=== PATIENT | female | born 1955 | race Caucasian/White ===

== ENCOUNTER → 2020-08-29 11:04 | Outpatient (BNVA) | payer OTHER, SELFPAY | PROVIDERS: Visit Provider Nurse Practitioner | DX: Z76.89 Persons encountering health services in other specified circumstances (principal) ==

== ENCOUNTER 2020-11-14 09:18 | Outpatient (REF) | payer MEDICARE, MEDICAID, SELFPAY ==
[2020-11-14 10:04] LABS: MANUAL DIFF FLAG NO
[2020-11-14 10:13] LABS: Basophils Absolute Auto 0.1 X10*3/uL (0.0-0.2); Basophils Percent Auto 0.8 % (0-2); Eosinophils Absolute Auto 0.2 X10*3/uL (0.0-0.4); Eosinophils Percent Auto 2.3 % (0-4); Hematocrit 44.2 % (37-47); Hemoglobin 14.4 g/dl (12.0-16.0); Imm Gran Abs Auto 0.02 X10*3/uL (0.00-0.03); Imm Gran Pct Auto 0.3 % (0.0-0.4); Lymphocytes Absolute Auto 2.5 X10*3/uL (1.2-4.9); Lymphocytes Percent Auto 32.8 % (20-40); Mean Corpuscular HGB Conc 32.6 g/dl (31.0-35.0); Mean Corpuscular Volume 85.8 fL (80-98); Mean Platelet Volume 10.5 fL (9.4-12.3); Monocytes Absolute Auto 0.5 X10*3/uL (0.1-1.2); Monocytes Percent Auto 6.5 % (2-11); Neutrophils Absolute Auto 4.4 X10*3/uL (2.0-8.3); Neutrophils Percent Auto 57.3 % (45-73); Platelet Count 280 X10*3/uL (160-400); Red Blood Count 5.15 X10*6/uL (4.20-5.50); Red Cell Distribution Width 12.7 % (11.0-16.0); White Blood Count 7.7 X10*3/uL (4.8-10.8)
[2020-11-14 10:43] LABS: Alanine Aminotransferase 23 U/L (0-31); Albumin Level 4.5 g/dL (3.5-5.0); Alkaline Phosphatase 61 U/L (39-117); Anion Gap 12 (12-20); Aspartate Amino Transferase 16 U/L (5-31); Bilirubin Total 0.5 mg/dL (0.0-1.0); Blood Urea Nitrogen 12 mg/dL (9-16); Calcium 9.8 mg/dL (8.4-10.2); Carbon Dioxide 32 mmol/L (22-29); Chloride 103 mmol/L (96-108); Cholesterol 245 mg/dL; Estimated Glomerular Filt Rate > 60; Glucose Random 91 mg/dL (60-115); HDL Cholesterol 38 mg/dL; LDL Cholesterol Calculated 137 mg/dl; Potassium 4.4 mmol/L (3.3-5.1); Sodium 143 mmol/L (135-145); Total Protein 7.1 g/dL (6.5-8.0); Triglycerides 353 mg/dL
[2020-11-14 11:09] LABS: Free T4 (Free Thyroxine) 0.98 ng/dL (0.71-1.85); Thyroid Stimulating Hormone 1.82 uIU/mL (0.32-4.0); Vitamin D 25-OH Total 30.3 ng/mL (>30)
[2020-11-15 20:50] LABS: Folate > 20.0 ng/mL (> or = 4.0); Vitamin B12 367 pg/mL (200-900)
== END 2020-11-14 09:19 | disposition home or self-care (01) ==
LOC: HO.LAB 09:18
PROVIDERS: PCP Internal Medicine; Visit Provider Internal Medicine
DX: I10 Essential (primary) hypertension (principal); E78.00 Pure hypercholesterolemia, unspecified
CPT/HCPCS: 36415; 80053; 80061; 82306; 82607; 82746; 84439; 84443; 85025

== ENCOUNTER → 2020-11-26 10:43 | Outpatient (BNVA) | payer MEDICARE, MEDICAID, SELFPAY | PROVIDERS: PCP Internal Medicine; Visit Provider Nurse Practitioner | CPT/HCPCS: Q3014 ==

== ENCOUNTER 2021-02-14 12:37 | Outpatient (REF) | payer MEDICARE, MEDICAID, SELFPAY ==
[2021-02-14 13:49] LABS: Glucose Urine UA NEG (NEG); Leukocyte Esterase Urine NEG (NEG); Nitrite Urine NEG (NEG); Urine Blood TRACE (NEG); Urine Ketones NEG (NEG); Urine Protein NEG (NEG-TRACE)
[2021-02-14 13:50] LABS: Appearance Urine CLEAR; Color Urine YELLOW
[2021-02-14 14:05] LABS: RBC Urine 0-2 /HPF (0); Squamous Epithelial Cell Urine TRACE /LPF; WBC Urine 0 /HPF (0-4)
[2021-02-14 14:16] LABS: Alanine Aminotransferase 16 U/L (0-31); Albumin Level 4.5 g/dL (3.5-5.0); Alkaline Phosphatase 56 U/L (39-117); Anion Gap 14 (12-20); Aspartate Amino Transferase 14 U/L (5-31); Bilirubin Total 0.5 mg/dL (0.0-1.0); Blood Urea Nitrogen 12 mg/dL (9-16); Calcium 9.8 mg/dL (8.4-10.2); Carbon Dioxide 30 mmol/L (22-29); Cholesterol 236 mg/dL; Estimated Glomerular Filt Rate > 60; Glucose Random 90 mg/dL (60-115); HDL Cholesterol 39 mg/dL; LDL Cholesterol Calculated 137 mg/dl; Total Protein 6.9 g/dL (6.5-8.0); Triglycerides 300 mg/dL
[2021-02-14 14:25] LABS: Chloride 105 mmol/L (96-108); Potassium 4.7 mmol/L (3.3-5.1); Sodium 144 mmol/L (135-145)
== END 2021-02-14 12:38 | disposition home or self-care (01) ==
LOC: HO.LAB 12:37
PROVIDERS: PCP Internal Medicine; Visit Provider Internal Medicine
DX: E78.00 Pure hypercholesterolemia, unspecified (principal)
CPT/HCPCS: 36415; 80053; 80061; 81001

== ENCOUNTER 2021-03-19 08:42 | Outpatient (REF) | payer MEDICARE, MEDICAID, SELFPAY ==
--- NOTE | ~2021-03-19 | MM_ITS ---
EXAMINATION: MM SCREENING DIGITAL BREAST TOMOSYNTHESIS, BILATERAL CLINICAL INFORMATION: Screening. Asymptomatic. The lifetime risk of breast cancer based on the Tyrer-Cuzick Model is 3.2%. COMPARISON: Mammography: March 13, 2020 and studies dating back to January 02, 2015 TECHNIQUE: Digital breast tomosynthesis is performed in both the craniocaudal and mediolateral oblique views along with computer-aided detection (CAD). Synthesized 2D images are generated from the tomosynthesis. FINDINGS: There are scattered areas of fibroglandular density (ACR BI-RADS breast composition Category b). There are no significant masses, abnormal calcifications, or other abnormalities. MM/MM tomosynthesis screening BI IMPRESSION: There are no significant changes from prior study. ASSESSMENT: BI-RADS 1: Negative RECOMMENDATION: Routine annual mammography screening. This patient's information was entered into a reminder system with a target due date for their next mammogram.
== END 2021-03-19 08:43 | disposition home or self-care (01) ==
LOC: HO.MAMMO 08:42
PROVIDERS: PCP Internal Medicine; Visit Provider Internal Medicine
DX: Z12.31 Encounter for screening mammogram for malignant neoplasm of breast (principal)
CPT/HCPCS: 77063; 77067

== ENCOUNTER 2021-04-17 10:02 | Outpatient (REF) | payer MEDICARE, MEDICAID, SELFPAY ==
--- NOTE | 2021-04-17 12:50 | MHC.AU.HAS ---
Hearing Aid Evaluation Date of Visit: 04/17/21 Outpatient Clerk Used: Bulgarian- In Person Historical Information: Description of Hearing: Right Ear - Moderately-severe to profound SNHL with no speech discrimination ability Left Ear - Normal hearing 250-4000 Hz, sloping to moderate SNHL at 8000 Hz with 96% speech understanding Current personal amplification information, if applicable: NONE Summary: Patient brings with her an audiogram and medical clearance from Dr. Vick. Patient has used ITC hearing aids which she did not like the style and were lost about 10 years ago. Patient has a severe case of COVID-19 in July 2020 and she lost her ability to walk, swallow, and hearing ability changed (question due to long-haul cognitive changes with COVID-19). Discussed the appropriate styles of CROS hearing aid systems. Patient wants the XENIA style aid as she did not like her previous ITC style. Recommend rechargeable style due to her difficulties related to COVID. Hearing Aid Prescription: Based on the individual?s shared listening needs, communication environments, dexterity, desire for connectivity, and personal preferences, the following prescription for amplification has been made: Right ear: Office Workforce Planner: [employer]um[employer]ow Model: CROS XENIA-R Battery Size: Rechargeable Color: Expresso Integration Technician: #2 CROS wire Type of Dome: Small open Left ear: Office Workforce Planner: Roselia Model: Ismael 1600 XENIA-R Battery Size: Rechargeable Color: Expresso Integration Technician: #2 50 gain Type of Dome: Open Plan of Care: Patient wishes to purchase hearing aids as prescribed Action Taken/Action Needed: Hearing Instrument Fitting to be scheduled when materials arrive Primary Diagnosis: H90.3 Bilateral Sensorineural Hearing Loss Secondary Diagnosis: H93.11 Tinnitus, Right Ear Signature: Provider: Zachery Phillips, [facility]
== END 2021-04-17 10:03 | disposition home or self-care (01) ==
LOC: HO.HAP 10:02
PROVIDERS: PCP Internal Medicine; Visit Provider Otolaryngology
DX: Z46.1 Encounter for fitting and adjustment of hearing aid (principal); H90.3 Sensorineural hearing loss, bilateral; H93.11 Tinnitus, right ear
CPT/HCPCS: 92591

== ENCOUNTER 2021-04-26 11:15 | Outpatient (REF) | payer MEDICARE, MEDICAID, SELFPAY ==
--- NOTE | ~2021-04-26 | XR_ITS ---
EXAMINATION: XR CHEST CLINICAL INFORMATION: Dorsalgia, unspecified COMPARISON: Chest x-ray January 17, 2015 TECHNIQUE: 2 views of the chest were obtained. FINDINGS: Lungs are clear. No pulmonary vascular congestion. There is no pleural effusion. The heart size is normal. The cardiac and mediastinal contours are normal. There are calcifications of the thoracic aorta. There are multilevel degenerative changes of dorsal spine. Surgical clips right upper quadrant of abdomen XR/XR chest 2V IMPRESSION: Unremarkable examination.
== END 2021-04-26 11:16 | disposition home or self-care (01) ==
LOC: HO.XRAY 11:15
PROVIDERS: PCP Internal Medicine; Visit Provider Internal Medicine
DX: M54.9 Dorsalgia, unspecified (principal)
CPT/HCPCS: 71046

== ENCOUNTER 2021-05-01 04:23 | Emergency (ER) | payer MEDICARE, MEDICAID, SELFPAY ==
--- NOTE | ~2021-05-01 | CT_ITS ---
EXAMINATION: CT ABDOMEN AND PELVIS WITHOUT CONTRAST CLINICAL INFORMATION: Left flank pain COMPARISON: 03/10/2018 TECHNIQUE: Multidetector volumetric imaging was performed from the superior aspect of the liver through the pubic symphysis. Sagittal and coronal reformatted images were obtained on the technologist's workstation. This CT examination was performed using dose optimization techniques as appropriate, variously including the following: *Automated exposure control *Adjustment of mA and/or kV according to patient size (this includes techniques or standardized protocols for targeted exams where dose is matched to indication/reason for exam; i.e. extremities or head) *Use of iterative reconstruction technique DLP: 522 mGy-cm FINDINGS: LUNG BASES: The visualized lung bases are unremarkable. LIVER, GALLBLADDER, AND BILIARY TREE: The liver is normal in size, shape, and attenuation. No focal hepatic lesion or biliary ductal dilatation is present. Cholecystectomy. PANCREAS: Unremarkable. SPLEEN: Unremarkable. ADRENAL GLANDS: Unremarkable. KIDNEYS AND URETERS: The kidneys are normal in size, shape, and attenuation. No hydronephrosis, hydroureter, or calculi seen. No perinephric stranding. BLADDER: Unremarkable. GASTROINTESTINAL TRACT: The stomach is unremarkable. Small duodenal diverticulum noted. Normal caliber small bowel. No obstruction. Normal appendix. No colonic wall thickening or inflammatory change. No free air or free fluid. Mild degenerative changes noted in the spine. ABDOMINAL WALL: No significant hernia is appreciated. LYMPH NODES: Normal. There is minimal nonspecific stranding in the fat in the left pelvis along the external iliac vasculature. VASCULAR: Normal caliber aorta with minimal atherosclerotic calcification. Phleboliths are seen along the course of the left ureter. PELVIC VISCERA: Uterus is not seen. No adnexal mass. OSSEOUS STRUCTURES: No acute or suspicious osseous abnormality. Degenerative changes noted of the spine. CT/CT abdomen pelvis wo con IMPRESSION: Nonspecific minimal stranding in the fat of the left pelvis in the region of the left iliac vasculature. No lymphadenopathy. No abnormal fluid. No hydronephrosis or nephrolithiasis. No inflammatory changes of the bowel.
[2021-05-01 04:35] VITALS: BP 192/85; PULSE 90; RESP 16; TEMP 37.1; O2SAT 98; BMI 30.2
--- NOTE | 2021-05-01 04:50 | ED.BACK ---
HPI - Back Pain/Injury General Chief Complaint: Back Pain/Injury Stated Complaint: back pain Time Seen by Provider: 05/01/21 04:41 Source: patient Mode of arrival: ambulatory History of Present Illness HPI Narrative: Patient history of fibromyalgia complaining of pain upper back area was seen at [facility] yesterday for same. No urinary complaints no fever no chills no abdominal pain no nausea no vomiting she claims the pain has spread to lower back now from for back Related Data Home Medications Medication Instructions Recorded Confirmed alprazolam 0.25 mg tablet 0.25 mg PO BID PRN 07/25/20 02/19/21 duloxetine 30 mg capsule,delayed 30 mg PO DAILY 07/25/20 02/19/21 release ondansetron 8 mg disintegrating 8 mg PO Q8H 07/25/20 02/19/21 tablet Previous Rx's Medication Instructions Recorded mupirocin 2 % topical ointment 1 applic TOPICAL BID #15 g 07/24/20 albuterol sulfate 90 mcg/actuation 2 puff INHALATION Q4-6H PRN #8.5 g 08/05/20 aerosol inhaler (ProAir HFA) guaifenesin 600 mg tablet, 600 mg PO BID #20 tab 08/07/20 extended release 12 hr (Mucinex) hydrocortisone 2.5 % topical cream 1 appl [place] BID-QID PRN #30 g 08/27/20 with perineal applicator sennosides 8.6 mg-docusate sodium 2 tab PO BEDTIME #60 tab 08/27/20 50 mg tablet (Senexon-S) oyztmigj-stc-[id number] acid 0.4 1 tab PO DAILY 60 Days #60 tab 10/04/20 mg-lycopene 300 mcg-lutein 250 mcg tablet (Centrum Silver) simethicone 180 mg capsule 180 mg PO QID 30 Days #120 cap 11/26/20 fenofibrate 160 mg tablet 160 mg PO DAILY #90 tab 01/15/21 cholecalciferol (vitamin D3) 25 25 mcg PO DAILY #90 cap 02/19/21 mcg (1,000 unit) capsule lisinopril 5 mg tablet 5 mg PO DAILY #30 tab 02/19/21 meclizine 25 mg tablet 25 mg PO TID PRN #90 tab 03/22/21 omeprazole 40 mg capsule,delayed 40 mg PO BID #30 cap 03/26/21 release tramadol 50 mg tablet 50 mg PO Q6H PRN #20 tab 05/01/21 Allergies Allergy/AdvReac Type Severity Reaction Status Date / Time fenofibrate Allergy Intermediate throat Verified 02/19/21 12:45 swelling Penicillins Allergy Mild rash Verified 02/19/21 12:45 gabapentin Allergy Unknown Unknown Verified 02/19/21 12:45 potassium Allergy Unknown Unknown Verified 02/19/21 12:45 simvastatin Allergy Unknown Unknown Verified 02/19/21 12:45 Review of Systems Review of Systems: Yes all other systems are reviewed and are negative [facility] Past Medical History Medical History Anxiety and depression Asthma Diverticulitis Fibromyalgia GERD (gastroesophageal reflux disease) History of gastric ulcer History of renal calculi Hypercholesterolemia Juvenile myoclonic epilepsy Migraine Obesity (BMI 30-39.9) Post-COVID syndrome Tibial neuropathy White coat syndrome with hypertension Surgical History History of cholecystectomy History of extraction of renal calculus History of eye surgery History of total abdominal hysterectomy and bilateral salpingo-oophorectomy History of umbilical hernia repair Hx of colonoscopy Status post excision of lipoma Family History Family History Father CVD (cerebrovascular disease) Hypertension Stroke Family history of cancer Mother Cancer Cerebral aneurysm Family history of cancer Maternal Grandmother Throat cancer Maternal Aunt Stomach cancer Maternal Uncle Stomach cancer Social History Social History Alcohol intake: current Alcohol intake frequency: does not drink Patient Tobacco Use Status: Never used Tobacco Second Hand Smoke Exposure: No Advance Directives: No Advance Directives Information Provided: No Physical Exam Vital Signs: Vital Signs: Last Vital Signs Temp 98.7 F 05/01/21 04:35 Pulse 90 05/01/21 04:35 Resp 16 05/01/21 04:35 BP 192/85 H 05/01/21 04:35 Pulse Ox 98 05/01/21 04:35 Body Mass Index 30.2 Appearance: Alert. Oriented X3. No acute distress. ENT: Pharynx normal. Oral Mucosa moist Neck: Normal inspection. Neck supple. CVS: Normal heart rate and rhythm. Pulses normal. Respiratory: No respiratory distress. Equal air entry bilateral, no wheezing/rales/rhonchi Abdomen: Soft and nontender. Bowel sounds are present, no mass palpable, no CVA tenderness Skin: Skin warm and dry. Normal skin color. Normal skin turgor. Extremities: No lower extremity edema. No calf tenderness Neuro: Oriented X 3. MDM - Back Pain/Injury MDM Narrative Medical decision making narrative: Patient fibromyalgia CT scan negative for any kidney stone will discharge patient home on tramadol Lab Data Labs: Lab Results 05/01/21 Range/Units 05:23 Urine Color YELLOW Urine Appearance CLEAR Urine pH 6.0 (5.0-8.0) Ur Specific [place] 1.010 (1.005-1.025) Urine Protein NEG (NEG-TRACE) MG/DL Urine Glucose (UA) NEG (NEG) MG/DL Urine Ketones NEG (NEG) MG/DL Urine Blood 1+ H (NEG) Urine Nitrite NEG (NEG) Ur Leukocyte Esterase NEG (NEG) Urine RBC 5-9 H (0) /HPF Urine WBC 1-4 (0-4) /HPF Ur Squamous Epith Cells 1+ /LPF Urine Bacteria 1+ /LPF Discharge Plan Discharge Clinical Impression: Fibromyalgia Patient Disposition: Home, Self-Care Instructions: Fibromyalgia (ED) Additional Instructions: Take medication for pain as prescribed. Follow up with PCP Prescriptions: New tramadol 50 mg tablet 50 mg PO Q6H PRN (Reason: pain) Qty: 20 RF: 0 No Action mupirocin 2 % ointment 1 applic topical BID Qty: 15 RF: 0 albuterol sulfate [ProAir HFA] 90 mcg/actuation HFA aerosol inhaler 2 puff inhalation Q4-6H PRN (Reason: shortness of breath or wheezing) Qty: 8.5 RF: 3 guaifenesin [Mucinex] 600 mg tablet extended release 12hr 600 mg PO BID Qty: 20 RF: 0 sennosides-docusate sodium [Senexon-S] 8.6-50 mg tablet 2 tab PO BEDTIME Qty: 60 RF: 5 hydrocortisone 2.5 % cream with perineal applicator 1 appl [place] BID-QID PRN (Reason: hemorrhoids) Qty: 30 RF: 1 fenofibrate 160 mg tablet 160 mg PO DAILY Qty: 90 RF: 2 meclizine 25 mg tablet 25 mg PO TID PRN (Reason: for dizziness) Qty: 90 RF: 1 omeprazole 40 mg capsule,delayed release(DR/EC) 40 mg PO BID Qty: 30 RF: 3 ondansetron 8 mg tablet,disintegrating 8 mg PO Q8H RF: 0 alprazolam 0.25 mg tablet 0.25 mg PO BID PRNRF: 0 duloxetine 30 mg capsule,delayed release(DR/EC) 30 mg PO DAILY RF: 0 Centrum Silver 0.4-300-250 mg-mcg-mcg tablet 1 tab PO DAILY 60 Days Qty: 60 RF: 0 lisinopril 5 mg tablet 5 mg PO DAILY Qty: 30 RF: 6 cholecalciferol (vitamin D3) 25 mcg (1,000 unit) capsule 25 mcg PO DAILY Qty: 90 RF: 3 simethicone 180 mg capsule 180 mg PO QID 30 Days Qty: 120 RF: 6 Print Language: Anguillan
[2021-05-01] MEDS: traMADoL HCL 50 MG TABLET PO (05:21)
[2021-05-01 05:29] LABS: Glucose Urine UA NEG (NEG); Leukocyte Esterase Urine NEG (NEG); Nitrite Urine NEG (NEG); UACC Culture Trigger NO; Urine Blood 1+ (NEG); Urine Ketones NEG (NEG); Urine Protein NEG (NEG-TRACE)
[2021-05-01 05:46] LABS: Appearance Urine CLEAR; Color Urine YELLOW
[2021-05-01 05:47] LABS: Bacteria Urine 1+ /LPF; Squamous Epithelial Cell Urine 1+ /LPF
[2021-05-01] MEDS: Ondansetron ODT 4 MG TAB.RAPDIS TRANSLINGU (05:58)
== END 2021-05-01 06:55 | disposition home or self-care (01) ==
PROVIDERS: Emergency Provider Internal Medicine
DX: M79.7 Fibromyalgia (principal); M54.5 Low back pain; Z79.899 Other long term (current) drug therapy
CPT/HCPCS: 74176; 81001; 99284

== ENCOUNTER 2021-05-01 13:33 | Emergency (ER) | payer MEDICARE, MEDICAID, SELFPAY ==
--- NOTE | ~2021-05-01 | CT_ITS ---
EXAMINATION: CT ABDOMEN AND PELVIS WITHOUT CONTRAST CLINICAL INFORMATION: Name with hematuria COMPARISON: 06/18/2017 TECHNIQUE: Multidetector volumetric imaging was performed from the superior aspect of the liver through the pubic symphysis. Sagittal and coronal reformatted images were obtained on the technologist's workstation. This CT examination was performed using dose optimization techniques as appropriate, variously including the following: *Automated exposure control *Adjustment of mA and/or kV according to patient size (this includes techniques or standardized protocols for targeted exams where dose is matched to indication/reason for exam; i.e. extremities or head) *Use of iterative reconstruction technique DLP: 511 mGy-cm FINDINGS: LUNG BASES: The visualized lung bases are unremarkable. LIVER, GALLBLADDER, AND BILIARY TREE: The liver is normal in size, shape, and attenuation. No focal hepatic lesion or biliary ductal dilatation is present. Status post cholecystectomy PANCREAS: Unremarkable. SPLEEN: Unremarkable. ADRENAL GLANDS: Unremarkable. KIDNEYS AND URETERS: The kidneys are normal in size, shape, and attenuation. No hydronephrosis, hydroureter, or calculi seen. No perinephric stranding. BLADDER: Unremarkable. GASTROINTESTINAL TRACT: The small and large bowel are unremarkable. ABDOMINAL WALL: No significant hernia is appreciated. LYMPH NODES: Normal. VASCULAR: Unremarkable. PELVIC VISCERA: Unremarkable. OSSEOUS STRUCTURES: Unremarkable. CT/CT abdomen pelvis wo con IMPRESSION: No evidence of renal or ureteral calculus or obstruction. The bowel pattern is felt to be nonobstructive. There is no free fluid.
[2021-05-01 14:03] VITALS: BP 140/101; PULSE 105; RESP 20; TEMP 37.3; O2SAT 97; BMI 30.2
[2021-05-01 14:53] LABS: MANUAL DIFF FLAG NO
[2021-05-01 14:54] LABS: Basophils Absolute Auto 0.1 X10*3/uL (0.0-0.2); Basophils Percent Auto 0.5 % (0-2); Eosinophils Absolute Auto 0.1 X10*3/uL (0.0-0.4); Eosinophils Percent Auto 0.6 % (0-4); Hematocrit 41.5 % (37-47); Hemoglobin 13.6 g/dl (12.0-16.0); Imm Gran Abs Auto 0.03 X10*3/uL (0.00-0.03); Imm Gran Pct Auto 0.3 % (0.0-0.4); Lymphocytes Absolute Auto 1.9 X10*3/uL (1.2-4.9); Lymphocytes Percent Auto 18.5 % (20-40); Mean Corpuscular HGB Conc 32.8 g/dl (31.0-35.0); Mean Corpuscular Volume 85.6 fL (80-98); Mean Platelet Volume 10.1 fL (9.4-12.3); Monocytes Absolute Auto 0.8 X10*3/uL (0.1-1.2); Monocytes Percent Auto 8.1 % (2-11); Neutrophils Absolute Auto 7.3 X10*3/uL (2.0-8.3); Platelet Count 248 X10*3/uL (160-400); Red Blood Count 4.85 X10*6/uL (4.20-5.50); Red Cell Distribution Width 12.5 % (11.0-16.0); White Blood Count 10.2 X10*3/uL (4.8-10.8)
[2021-05-01 15:25] LABS: Anion Gap 12 (12-20); Blood Urea Nitrogen 10 mg/dL (9-16); Calcium 9.4 mg/dL (8.4-10.2); Carbon Dioxide 30 mmol/L (22-29); Chloride 105 mmol/L (96-108); Creatinine Clr Calc Pharmacy 54.5; Estimated Glomerular Filt Rate > 60; Glucose Random 84 mg/dL (60-115); Sodium 143 mmol/L (135-145)
--- NOTE | 2021-05-01 17:34 | ED.ABDPAIN ---
HPI - Abdominal Pain General Chief Complaint: Abdominal Pain Stated Complaint: multiple complaints Time Seen by Provider: 05/01/21 17:34 Source: patient Mode of arrival: ambulatory Limitations: no limitations History of Present Illness HPI narrative: Patient developed pain last night and was seen at 3am, today has the pain again. patient with 2 episodes of vomiting. Patient feels that she is having left flank pain. patient states she had surgery to the left kidney with hydronephrosis and stones. MD elicited complaint: flank pain Pertinent past history: diverticulitis, kidney stones and past UTI Onset (ago): day(s) Pain Consistency: intermittent Related Data Home Medications Medication Instructions Recorded Confirmed alprazolam 0.25 mg tablet 0.25 mg PO BID PRN 07/25/20 02/19/21 duloxetine 30 mg capsule,delayed 30 mg PO DAILY 07/25/20 02/19/21 release ondansetron 8 mg disintegrating 8 mg PO Q8H 07/25/20 02/19/21 tablet Previous Rx's Medication Instructions Recorded mupirocin 2 % topical ointment 1 applic TOPICAL BID #15 g 07/24/20 albuterol sulfate 90 mcg/actuation 2 puff INHALATION Q4-6H PRN #8.5 g 08/05/20 aerosol inhaler (ProAir HFA) guaifenesin 600 mg tablet, 600 mg PO BID #20 tab 08/07/20 extended release 12 hr (Mucinex) hydrocortisone 2.5 % topical cream 1 appl [place] BID-QID PRN #30 g 08/27/20 with perineal applicator sennosides 8.6 mg-docusate sodium 2 tab PO BEDTIME #60 tab 08/27/20 50 mg tablet (Senexon-S) ubpxbjqg-avz-enpuw acid 0.4 1 tab PO DAILY 60 Days #60 tab 10/04/20 mg-lycopene 300 mcg-lutein 250 mcg tablet (Centrum Silver) simethicone 180 mg capsule 180 mg PO QID 30 Days #120 cap 11/26/20 fenofibrate 160 mg tablet 160 mg PO DAILY #90 tab 01/15/21 cholecalciferol (vitamin D3) 25 25 mcg PO DAILY #90 cap 02/19/21 mcg (1,000 unit) capsule lisinopril 5 mg tablet 5 mg PO DAILY #30 tab 06/01/21 meclizine 25 mg tablet 25 mg PO TID PRN #90 tab 03/22/21 omeprazole 40 mg capsule,delayed 40 mg PO BID #30 cap 03/26/21 release tramadol 50 mg tablet 50 mg PO Q6H PRN #20 tab 05/01/21 Allergies Allergy/AdvReac Type Severity Reaction Status Date / Time fenofibrate Allergy Intermediate throat Verified 02/19/21 12:45 swelling Penicillins Allergy Mild rash Verified 02/19/21 12:45 gabapentin Allergy Unknown Unknown Verified 02/19/21 12:45 potassium Allergy Unknown Unknown Verified 02/19/21 12:45 simvastatin Allergy Unknown Unknown Verified 02/19/21 12:45 Review of Systems Denies Sensory deficit (Neuro) Physical Exam Vital Signs: Vital Signs: Last Vital Signs Temp 99.2 F 05/01/21 14:03 Pulse 105 H 05/01/21 14:03 Resp 20 05/01/21 14:03 BP 140/101 H 05/01/21 14:03 Pulse Ox 97 05/01/21 14:03 Body Mass Index 30.2 Const: General: healthy appearing Nutritional Appearance: average body habitus Orientation/consciousness: oriented to person and patient oriented x3 Limitations: no limitations HENMT: Head: Yes normal to inspection Ears: external ears normal General nose exam: Normal external nose present Mouth: Normal oral and palatal mucosa present and oropharynx normal Throat: Yes posterior oropharynx normal Eyes: General: appearance normal, both eyes and all related structures Neck: Other: supple Neck: Yes normal visual inspection Chest: Chest palpation & inspection: normal inspection of the chest Resp: Auscultation: clear to auscultation bilaterally Cardio: Jugular venous distension: no JVD Rate: regular rate Rhythm: regular rhythm Heart sounds: S1 normal heart sound present and S2 normal heart sound present GI: Inspection: Yes normal to inspection Palpation (GI): Soft to palpation, nontender and No hepatosplenomegaly present Auscultation: normal bowel sounds : Other: mild left CVAT Skin: General skin exam: no rashes or lesions noted Neuro: General: oriented to person and patient oriented x3 Cranial nerves: Yes CN's II-XII intact bilaterally Motor exam (neuro): 5/5 motor strength present throughout Sensory Exam: No Sensory deficit (Neuro) Extrem: General: Yes normal to inspection Psych: Appearance: grossly normal Course Reevaluation(s) Reevaluation #1: Labs and CT are negative, did not find a cause for the patients pain Time: 19:26 MDM - Abdominal Pain Lab Data Result diagrams: 05/01/21 14:48 05/01/21 14:48 Labs: Lab Results 05/01/21 05/01/21 05/01/21 Range/Units 14:48 14:48 14:48 WBC 10.2 (4.8-10.8) X10*3/uL RBC 4.85 (4.20-5.50) X10*6/uL Hgb 13.6 (12.0-16.0) g/dl Hct 41.5 (37-47) % MCV 85.6 (80-98) fL MCH 28.0 (27.0-33.0) pg MCHC 32.8 (31.0-35.0) g/dl RDW 12.5 (11.0-16.0) % Plt Count 248 (160-400) X10*3/uL MPV 10.1 (9.4-12.3) fL Immature Gran % (Auto) 0.3 (0.0-0.4) % Neut % (Auto) 72.0 (45-73) % Lymph % (Auto) 18.5 L (20-40) % [place] % (Auto) 8.1 (2-11) % Eos % (Auto) 0.6 (0-4) % Baso % (Auto) 0.5 (0-2) % Lymph # (Auto) 1.9 (1.2-4.9) X10*3/uL [place] # (Auto) 0.8 (0.1-1.2) X10*3/uL Eos # (Auto) 0.1 (0.0-0.4) X10*3/uL Baso # (Auto) 0.1 (0.0-0.2) X10*3/uL Abs Immat Gran (auto) 0.03 (0.00-0.03) X10*3/uL Absolute Neuts (auto) 7.3 (2.0-8.3) X10*3/uL Absolute Nucleated RBC 0.000 (0.0-0.012) X10*3/uL Nucleated RBC % (auto) 0.0 (0.0-0.2) /100WBC Sodium 143 Cancelled (135-145) mmol/L Potassium 4.0 Cancelled (3.3-5.1) mmol/L Chloride 105 Cancelled (96-108) mmol/L Carbon Dioxide 30 H Cancelled (22-29) mmol/L Anion Gap 12 Cancelled (12-20) BUN 10 Cancelled (9-16) mg/dL Creatinine 0.90 Cancelled (0.5-1.4) mg/dL Estim Creat Clear Calc 54.5 Cancelled Estimated GFR > 60 Cancelled Random Glucose 84 Cancelled (60-115) mg/dL Calcium 9.4 Cancelled (8.4-10.2) mg/dL Total Bilirubin 0.8 Cancelled (0.0-1.0) mg/dL Direct Bilirubin 0.3 Cancelled (0.0-0.5) mg/dL AST 15 Cancelled (5-31) U/L ALT 16 Cancelled (0-31) U/L Alkaline Phosphatase 57 Cancelled (39-117) U/L Total Protein 6.7 Cancelled (6.5-8.0) g/dL Albumin 4.3 Cancelled (3.5-5.0) g/dL Lipase 6 L Cancelled (8-78) U/L Imaging Data CT scan - abdomen: Radiologist's impression: IMPRESSION: No evidence of renal or ureteral calculus or obstruction. The bowel pattern is felt to be nonobstructive. There is no free fluid.? Discharge Plan Discharge Clinical Impression: Abdominal pain Patient Disposition: Home, Self-Care Instructions: Abdominal Pain (ED) Prescriptions: No Action mupirocin 2 % ointment 1 applic topical BID Qty: 15 RF: 0 albuterol sulfate [ProAir HFA] 90 mcg/actuation HFA aerosol inhaler 2 puff inhalation Q4-6H PRN (Reason: shortness of breath or wheezing) Qty: 8.5 RF: 3 guaifenesin [Mucinex] 600 mg tablet extended release 12hr 600 mg PO BID Qty: 20 RF: 0 sennosides-docusate sodium [Senexon-S] 8.6-50 mg tablet 2 tab PO BEDTIME Qty: 60 RF: 5 hydrocortisone 2.5 % cream with perineal applicator 1 appl [place] BID-QID PRN (Reason: hemorrhoids) Qty: 30 RF: 1 fenofibrate 160 mg tablet 160 mg PO DAILY Qty: 90 RF: 2 meclizine 25 mg tablet 25 mg PO TID PRN (Reason: for dizziness) Qty: 90 RF: 1 omeprazole 40 mg capsule,delayed release(DR/EC) 40 mg PO BID Qty: 30 RF: 3 tramadol 50 mg tablet 50 mg PO Q6H PRN (Reason: pain) Qty: 20 RF: 0 ondansetron 8 mg tablet,disintegrating 8 mg PO Q8H RF: 0 alprazolam 0.25 mg tablet 0.25 mg PO BID PRNRF: 0 duloxetine 30 mg capsule,delayed release(DR/EC) 30 mg PO DAILY RF: 0 Centrum Silver 0.4-300-250 mg-mcg-mcg tablet 1 tab PO DAILY 60 Days Qty: 60 RF: 0 lisinopril 5 mg tablet 5 mg PO DAILY Qty: 30 RF: 6 cholecalciferol (vitamin D3) 25 mcg (1,000 unit) capsule 25 mcg PO DAILY Qty: 90 RF: 3 simethicone 180 mg capsule 180 mg PO QID 30 Days Qty: 120 RF: 6 PMFSH Past Medical History Medical History Anxiety and depression Asthma Diverticulitis Fibromyalgia GERD (gastroesophageal reflux disease) History of gastric ulcer History of renal calculi Hypercholesterolemia Juvenile myoclonic epilepsy Migraine Obesity (BMI 30-39.9) Post-COVID syndrome Tibial neuropathy White coat syndrome with hypertension Surgical History History of cholecystectomy History of extraction of renal calculus History of eye surgery History of total abdominal hysterectomy and bilateral salpingo-oophorectomy History of umbilical hernia repair Hx of colonoscopy Status post excision of lipoma Family History Family History Father CVD (cerebrovascular disease) Hypertension Stroke Family history of cancer Mother Cancer Cerebral aneurysm Family history of cancer Maternal Grandmother Throat cancer Maternal Aunt Stomach cancer Maternal Uncle Stomach cancer Social History Social History Alcohol intake: current Alcohol intake frequency: does not drink Patient Tobacco Use Status: Never used Tobacco Second Hand Smoke Exposure: No Advance Directives: Yes Advance Directives Information Provided: Yes Advance Directives on File: No
[2021-05-01 18:00] VITALS: BP 137/90; PULSE 89; RESP 18; TEMP 36.9; O2SAT 97
[2021-05-01] MEDS: 0.9 % Sodium Chloride 1,000 ML 999 ML IVCONT ×2 (18:28→19:24)
[2021-05-01] MEDS: Ketorolac Tromethamine 15 MG/ML VIAL 30 MG IVPUSH (18:29)
[2021-05-01 18:40] LABS: Alanine Aminotransferase 16 U/L (0-31); Albumin Level 4.3 g/dL (3.5-5.0); Alkaline Phosphatase 57 U/L (39-117); Aspartate Amino Transferase 15 U/L (5-31); Bilirubin Direct 0.3 mg/dL (0.0-0.5); Bilirubin Total 0.8 mg/dL (0.0-1.0); Lipase 6 U/L (8-78); Total Protein 6.7 g/dL (6.5-8.0)
== END 2021-05-01 19:52 | disposition home or self-care (01) ==
PROVIDERS: Emergency Provider Emergency Medicine
DX: R10.9 Unspecified abdominal pain (principal); Z79.899 Other long term (current) drug therapy; Z87.442 Personal history of urinary calculi
CPT/HCPCS: 36415; 74176; 80048; 80076; 83690; 85025; 96361; 96374; 99284; J1885

== ENCOUNTER 2021-05-14 10:20 | Outpatient (REF) | payer MEDICARE, MEDICAID, SELFPAY ==
--- NOTE | ~2021-05-14 | US_ITS ---
EXAMINATION: US RETROPERITONEAL LIMITED (RENAL ONLY) CLINICAL INFORMATION: Calculus of kidney. COMPARISON: Renal ultrasound 07/29/2018. Limited abdominal ultrasound 10/29/2017. CT abdomen and pelvis 05/01/2021. TECHNIQUE: Real-time imaging of the kidneys. FINDINGS: RIGHT KIDNEY: 11.2 x 3.7 x 5.0 cm (SAG x AP x TRV). The kidney is normal in size, contour, and echogenicity. Renal cortical thickness is normal. No calculi or focal parenchymal lesions. No hydronephrosis. LEFT KIDNEY: 11.6 x 5.7 x 4.8 cm (SAG x AP x TRV). The kidney is normal in size, contour, and echogenicity. Renal cortical thickness is normal. No calculi or focal parenchymal lesions. No hydronephrosis. US/US renal BI IMPRESSION: No significant renal abnormality.
== END 2021-05-14 10:21 | disposition home or self-care (01) ==
LOC: HO.HMGCX 10:20
PROVIDERS: PCP Internal Medicine; Visit Provider Internal Medicine
DX: N20.0 Calculus of kidney (principal)
CPT/HCPCS: 76775

== ENCOUNTER 2021-05-17 09:51 | Outpatient (REF) | payer MEDICARE, MEDICAID, SELFPAY | END 2021-05-17 09:52 | disposition home or self-care (01) | LOC: HO.HAP 09:51 | PROVIDERS: PCP Internal Medicine; Visit Provider Otolaryngology | DX: Z46.1 Encounter for fitting and adjustment of hearing aid (principal); H90.3 Sensorineural hearing loss, bilateral | CPT/HCPCS: V5011; V5020; V5221; V5240 ==

== ENCOUNTER → 2021-05-31 10:33 | Outpatient (BNVA) | payer MEDICARE, MEDICAID, SELFPAY | PROVIDERS: Referring Provider Internal Medicine; Visit Provider Nurse Practitioner | DX: K21.9 Gastro-esophageal reflux disease without esophagitis (principal); K59.01 Slow transit constipation; K64.9 Unspecified hemorrhoids; R14.0 Abdominal distension (gaseous); R31.9 Hematuria, unspecified; R10.9 Unspecified abdominal pain; R10.33 Periumbilical pain; R10.10 Upper abdominal pain, unspecified; M54.9 Dorsalgia, unspecified | CPT/HCPCS: 99212 ==

== ENCOUNTER 2021-06-03 09:11 | Outpatient (REF) | payer MEDICARE, MEDICAID, SELFPAY ==
--- NOTE | ~2021-06-03 | XR_ITS ---
EXAMINATION: XR CHEST AND BILATERAL RIBS, THORACIC SPINE, LUMBAR SPINE CLINICAL INFORMATION: Dorsalgia. COMPARISON: CT abdomen pelvis 05/01/2021, chest radiograph 04/26/2021. TECHNIQUE: 3 views thoracic spine, 3 views lumbar spine and single view chest with 2 additional views bilateral ribs. FINDINGS: Thoracic Spine: Degenerative changes are present throughout with predominantly endplate changes and osteophytes. Disc spaces are moderately well preserved as are disc heights. Paraspinal soft tissues are unremarkable. Incidental note made of aortic calcification and surgical clips in the gallbladder fossa. Lumbar Spine: Mild degenerative changes present, most prominent at L4-L5 and L5-S1 with predominantly endplate changes. Disc spaces are fairly well maintained as are vertebral body heights. No fractures or bony destructive lesions. Chest and Bilateral Ribs: No significant abnormality seen involving the heart, lungs or mediastinum. Degenerative changes present in the thoracic spine as described above. The ribs appear unremarkable without fractures or bony destructive lesions. XR/XR lumbar spine 2-3V IMPRESSION: Degenerative changes present in the thoracic and lumbar spine. Normal-appearing ribs.
--- NOTE | ~2021-06-03 | XR_ITS ---
EXAMINATION: XR CHEST AND BILATERAL RIBS, THORACIC SPINE, LUMBAR SPINE CLINICAL INFORMATION: Dorsalgia. COMPARISON: CT abdomen pelvis 05/01/2021, chest radiograph 04/26/2021. TECHNIQUE: 3 views thoracic spine, 3 views lumbar spine and single view chest with 2 additional views bilateral ribs. FINDINGS: Thoracic Spine: Degenerative changes are present throughout with predominantly endplate changes and osteophytes. Disc spaces are moderately well preserved as are disc heights. Paraspinal soft tissues are unremarkable. Incidental note made of aortic calcification and surgical clips in the gallbladder fossa. Lumbar Spine: Mild degenerative changes present, most prominent at L4-L5 and L5-S1 with predominantly endplate changes. Disc spaces are fairly well maintained as are vertebral body heights. No fractures or bony destructive lesions. Chest and Bilateral Ribs: No significant abnormality seen involving the heart, lungs or mediastinum. Degenerative changes present in the thoracic spine as described above. The ribs appear unremarkable without fractures or bony destructive lesions. XR/XR thoracic spine 2V IMPRESSION: Degenerative changes present in the thoracic and lumbar spine. Normal-appearing ribs.
--- NOTE | ~2021-06-03 | XR_ITS ---
EXAMINATION: XR CHEST AND BILATERAL RIBS, THORACIC SPINE, LUMBAR SPINE CLINICAL INFORMATION: Dorsalgia. COMPARISON: CT abdomen pelvis 05/01/2021, chest radiograph 04/26/2021. TECHNIQUE: 3 views thoracic spine, 3 views lumbar spine and single view chest with 2 additional views bilateral ribs. FINDINGS: Thoracic Spine: Degenerative changes are present throughout with predominantly endplate changes and osteophytes. Disc spaces are moderately well preserved as are disc heights. Paraspinal soft tissues are unremarkable. Incidental note made of aortic calcification and surgical clips in the gallbladder fossa. Lumbar Spine: Mild degenerative changes present, most prominent at L4-L5 and L5-S1 with predominantly endplate changes. Disc spaces are fairly well maintained as are vertebral body heights. No fractures or bony destructive lesions. Chest and Bilateral Ribs: No significant abnormality seen involving the heart, lungs or mediastinum. Degenerative changes present in the thoracic spine as described above. The ribs appear unremarkable without fractures or bony destructive lesions. XR/XR ribs BI 3V IMPRESSION: Degenerative changes present in the thoracic and lumbar spine. Normal-appearing ribs.
[2021-06-03 11:07] LABS: Amylase 55 U/L (28-100); C Reactive Protein 0.35 mg/dL (< or = 0.50); Lactate Dehydrogenase 143 U/L (122-220); Lipase 14 U/L (8-78); Rheumatoid Factor < 15.0 IU/mL (<15.0)
[2021-06-03 11:26] LABS: Erythrocyte Sedimentation Rate 12 MM/HR (0-20)
[2021-06-04 21:56] LABS: Anti Nuclear Antibody Screen POSITIVE (NEGATIVE); Anti Nuclear Antibody Titer 1:40 titer
== END 2021-06-03 09:12 | disposition home or self-care (01) ==
LOC: HO.LAB 09:11
PROVIDERS: PCP Internal Medicine; Visit Provider Nurse Practitioner
DX: R10.10 Upper abdominal pain, unspecified (principal); R10.33 Periumbilical pain; R14.0 Abdominal distension (gaseous); M54.9 Dorsalgia, unspecified
CPT/HCPCS: 36415; 71110; 72070; 72100; 82150; 83615; 83690; 85652; 86038; 86039; 86140; 86431

== ENCOUNTER 2021-06-03 10:24 | Outpatient (REF) | payer MEDICARE, MEDICAID, SELFPAY ==
--- NOTE | 2021-06-03 13:58 | MHC.AU.HFU ---
Hearing Instrument Follow-Up- Binaural Date of Visit: 06/03/21 Chemical Cell Changer Used: Not Applicable Right Ear: Africana Studies Professor: Roselia Model: CROS XENIA-R Serial Number: [id number] Repair Warranty: 08/07/2024 Battery Size: Rechargeable Color: Expresso Activities Officer: #2 CROS wire Type of Dome: Small open Type of Wax Guard: HearClear Dispensed By: [facility] Date of Fittin05/17/2021 Left Ear: Africana Studies Professor: Roselia Model: Ismael 1600 XENIA-R Serial Number: [id number] Repair Warranty: 08/07/2024 Battery Size: Rechargeable Color: Expresso Activities Officer: #2 50 gain Type of Dome: Open Type of Wax Guard: HearClear Dispensed By: [facility] Date of Fittin05/17/2021 Follow-Up Summary: Patient reports she loves the hearing aids and does not need any adjustments. She also reports the CROS system helps relieve the tinnitus. However, they keep coming out of her ears, especially when removing glasses or face mask. Showed patient custom canal lock tips and she would like to try them. Took impressions of both ears without complication and ordered tips from Roselia. Recommendations (Other): Call patient when Roselia tips in. Diagnosis Code(s): Primary Diagnosis: H90.3 Bilateral Sensorineural Hearing Loss Secondary Diagnosis: H93.11 Tinnitus, Right Ear Services Performed: Ear Impression (Quantity): 2 Signature: Provider: Zachery Phillips, CCC-A
== END 2021-06-03 10:25 | disposition home or self-care (01) ==
LOC: HO.HAP 10:24
PROVIDERS: Visit Provider Internal Medicine
DX: Z46.1 Encounter for fitting and adjustment of hearing aid (principal); H93.11 Tinnitus, right ear
CPT/HCPCS: V5275

== ENCOUNTER 2021-06-14 09:52 | Outpatient (REF) | payer MEDICARE, MEDICAID, SELFPAY | END 2021-06-14 09:53 | disposition home or self-care (01) | LOC: HO.HAP 09:52 | PROVIDERS: Visit Provider Internal Medicine | DX: Z46.1 Encounter for fitting and adjustment of hearing aid (principal); H90.3 Sensorineural hearing loss, bilateral | CPT/HCPCS: V5264 ==

== ENCOUNTER 2021-07-31 08:46 | Outpatient (REF) | payer MEDICARE, MEDICAID, SELFPAY ==
--- NOTE | ~2021-07-31 | FL_ITS ---
EXAMINATION: XR UPPER GI SERIES WITH SMALL BOWEL CLINICAL INFORMATION: Back pain, periumbilical pain. COMPARISON: CT abdomen 05/01/2021 TECHNIQUE: Upper GI, using effervescent granules, thick and thin barium. Small bowel follow-through. FINDINGS: Upper GI: Normal swallowing reflex. Normal esophageal motility and distention. No mass or mucosal lesions are seen in the esophagus, stomach or duodenal bulb. Small sliding hiatal hernia. There is spontaneous gastroesophageal reflux seen in the supine position. Small bowel series: There is normal passage of the barium through the small bowel to the large colon. No evidence of bowel obstruction. The caliber of the small bowel is normal. No mass or mucosal lesions are seen. FLUOROSCOPY TIME: 2.1 minutes DOSE AREA PRODUCT: 25.5 uGy-m2 (microgray-meter squared) Images: 50 FL/FL upper GI small bowel IMPRESSION: 1. Small sliding hiatal hernia. 2. Gastroesophageal reflux in the supine position. 3. No significant abnormality evident on the small bowel follow-through study.
== END 2021-07-31 08:47 | disposition home or self-care (01) ==
LOC: HO.XRAY 08:46
PROVIDERS: PCP Internal Medicine; Visit Provider Nurse Practitioner
DX: R10.33 Periumbilical pain (principal); R10.10 Upper abdominal pain, unspecified; M54.9 Dorsalgia, unspecified; R14.0 Abdominal distension (gaseous)
CPT/HCPCS: 74240; 74248

== ENCOUNTER → 2021-08-14 07:49 | Outpatient (REF) | payer MEDICARE, MEDICAID, SELFPAY ==
--- NOTE | ~2021-08-14 | NM_ITS ---
EXAMINATION: VT RADIONUCLIDE SOLID FOOD GASTRIC EMPTYING 4-HOUR STUDY CLINICAL INFORMATION: Abdominal pain, nausea. COMPARISON: None TECHNIQUE: A standard meal consisting of 4 oz of Egg Beaters brand tagged with 1.0 microcuries Tc-99m Sulfur Colloid, 8 oz water and 2 slices of toast with jelly was administered orally to the patient. Images were obtained using a dual head gamma camera in the anterior and posterior projections over of the stomach immediately post ingestion and at hourly intervals up to 4 hours post ingestion. The anterior and posterior counts at each time interval were averaged using the geometric mean and expressed as percentage of the immediate post ingestion counts. FINDINGS: There is good visualization of activity in the stomach immediately post ingestion. As the study progresses, there is good clearance of activity from the stomach and visualization of progressively increasing small bowel activity. By the end of the study, there is almost no retention noted in the stomach. Retention in the stomach at each time interval was: 1 hour 66% (normal 37%-90%) 2 hours 21% (normal 30%-60%) 3 hours 5% 4 hours Not performed. VT/VT gastric emptying study IMPRESSION: Normal 4-hour solid food gastric emptying study.
== END ==
LOC: HO.NUCMED 07:49
PROVIDERS: Visit Provider Nurse Practitioner
DX: R10.10 Upper abdominal pain, unspecified (principal); R10.33 Periumbilical pain; R14.0 Abdominal distension (gaseous); M54.9 Dorsalgia, unspecified
CPT/HCPCS: 78264; A9541

== ENCOUNTER → 2021-08-27 08:51 | Outpatient (BNVA) | payer MEDICARE, MEDICAID, SELFPAY | PROVIDERS: PCP Internal Medicine; Referring Provider Internal Medicine; Visit Provider Nurse Practitioner | DX: K59.01 Slow transit constipation (principal); K21.9 Gastro-esophageal reflux disease without esophagitis; R10.10 Upper abdominal pain, unspecified; R10.33 Periumbilical pain; M51.34 Other intervertebral disc degeneration, thoracic region | CPT/HCPCS: 99212 ==

== ENCOUNTER 2021-09-19 08:36 | Outpatient (REF) | payer MEDICARE, MEDICAID, SELFPAY | END 2021-09-19 08:37 | disposition home or self-care (01) | LOC: HO.HMGCLDS 08:36 | PROVIDERS: Visit Provider Internal Medicine | DX: Z20.822 Contact with and (suspected) exposure to COVID-19 (principal) | CPT/HCPCS: C9803; U0003; U0005 ==

== ENCOUNTER 2022-05-14 10:00 | Outpatient (REF) | payer SELFPAY | END 2022-05-14 10:01 | disposition home or self-care (01) | LOC: HO.HAP 10:00 | PROVIDERS: Visit Provider Internal Medicine | DX: Z13.89 Encounter for screening for other disorder (principal) ==

== ENCOUNTER 2022-05-22 14:21 | Emergency (ER) | payer MEDICARE, MEDICAID, SELFPAY ==
--- NOTE | ~2022-05-22 | CT_ITS ---
EXAMINATION: CT ABDOMEN AND PELVIS WITHOUT CONTRAST CLINICAL INFORMATION: Abdominal pain for 3 weeks COMPARISON: CT scan abdomen pelvis 05/01/2021 TECHNIQUE: Multidetector volumetric imaging was performed from the superior aspect of the liver through the pubic symphysis. Sagittal and coronal reformatted images were obtained on the technologist's workstation. This CT examination was performed using dose optimization techniques as appropriate, variously including the following: *Automated exposure control *Adjustment of mA and/or kV according to patient size (this includes techniques or standardized protocols for targeted exams where dose is matched to indication/reason for exam; i.e. extremities or head) *Use of iterative reconstruction technique DLP: 566 mGy-cm FINDINGS: LUNG BASES: Stable chronic subpleural reticular scarring and mild bronchiectasis at the medial right lung base. This is likely related to the large degenerative spur of the thoracic spine at this level. No acute airspace disease. LIVER, GALLBLADDER, AND BILIARY TREE: The liver is normal in size, shape, and attenuation. No focal hepatic lesion or biliary ductal dilatation is present. Status post cholecystectomy PANCREAS: Unremarkable. SPLEEN: Unremarkable. ADRENAL GLANDS: Unremarkable. KIDNEYS AND URETERS: Kidneys are of normal size and contour with normal cortical thickness and density. There is no calculus or hydronephrosis. There is no hydroureter. The coarse calcifications adjacent to the ureters in the retroperitoneum at about the level of the L4 and L5 vertebrae are chronic coarse vascular calcifications in the heart is not ureteral stones. BLADDER: Unremarkable. GASTROINTESTINAL TRACT: The small and large bowel are unremarkable. The appendix is normal.. ABDOMINAL WALL: No significant hernia is appreciated. LYMPH NODES: Normal. VASCULAR: Unremarkable. PELVIC VISCERA: Status post hysterectomy. OSSEOUS STRUCTURES: Multilevel degenerative spondylosis spine. CT/CT abdomen pelvis wo IV con IMPRESSION: No acute abnormality CT scan abdomen pelvis. Fleischner guidelines were followed.
[2022-05-22 14:28] VITALS: BP 160/78; PULSE 88; RESP 19; TEMP 36.6; O2SAT 98; BMI 31.6
[2022-05-22 15:23] LABS: MANUAL DIFF FLAG NO
[2022-05-22 15:25] LABS: Basophils Absolute Auto 0.1 X10*3/uL (0.0-0.2); Basophils Percent Auto 0.8 % (0-2); Eosinophils Absolute Auto 0.1 X10*3/uL (0.0-0.4); Eosinophils Percent Auto 0.6 % (0-4); Hematocrit 43.5 % (37.0-47.0); Hemoglobin 14.3 g/dl (12.0-16.0); Imm Gran Abs Auto 0.02 X10*3/uL (0.00-0.03); Imm Gran Pct Auto 0.3 % (0.0-0.4); Lymphocytes Absolute Auto 2.3 X10*3/uL (1.2-4.9); Lymphocytes Percent Auto 29.6 % (20-40); Mean Corpuscular HGB Conc 32.9 g/dl (31.0-35.0); Mean Corpuscular Volume 85.1 fL (80.0-98.0); Monocytes Absolute Auto 0.6 X10*3/uL (0.1-1.2); Monocytes Percent Auto 7.3 % (2-11); Neutrophils Absolute Auto 4.8 x10*3/uL (2.0-8.3); Neutrophils Percent Auto 61.4 % (45-73); Platelet Count 271 X10*3/uL (160-400); Red Blood Count 5.11 X10*6/uL (4.20-5.50); Red Cell Distribution Width 12.5 % (11.0-16.0); White Blood Count 7.8 X10*3/uL (4.8-10.8)
[2022-05-22 15:45] LABS: Alanine Aminotransferase 19 U/L (0-31); Albumin Level 4.3 g/dL (3.5-5.0); Alkaline Phosphatase 67 U/L (39-117); Anion Gap 15 (12-20); Aspartate Amino Transferase 16 U/L (5-31); Bilirubin Direct < 0.2 mg/dL (0.0-0.5); Bilirubin Total 0.5 mg/dL (0.0-1.0); Blood Urea Nitrogen 13 mg/dL (9-16); Calcium 9.3 mg/dL (8.4-10.2); Carbon Dioxide 28 mmol/L (22-29); Chloride 106 mmol/L (96-108); Creatinine Clr Calc Pharmacy 59.7; Estimated Glomerular Filt Rate > 60; Glucose Random 107 mg/dL (60-115); Lipase 27 U/L (8-78); Potassium 4.4 mmol/L (3.3-5.1); Sodium 145 mmol/L (135-145); Total Protein 7.1 g/dL (6.5-8.0)
[2022-05-22 15:55] VITALS: BP 159/70; PULSE 78; RESP 16; TEMP 36.6; O2SAT 99
[2022-05-22 15:59] LABS: Appearance Urine Clear; Color Urine Yellow; Glucose Urine UA Negative (Negative); Leukocyte Esterase Urine Negative (Negative); Nitrite Urine Negative (Negative); Urine Blood Negative (Negative); Urine Ketones Negative (Negative); Urine Protein Negative (Neg-Trace)
--- NOTE | 2022-05-22 16:02 | ED.ABDPAIN ---
HPI - Abdominal Pain General Chief Complaint: Abdominal Pain Stated Complaint: L side pain Time Seen by Provider: 05/22/22 14:51 Source: patient, family and projector booth operator Mode of arrival: ambulatory History of Present Illness HPI narrative: 66-year-old female who reports left flank/lower will quadrant pain for the past 3 weeks that has been worsening over the past 3 days and states that has been associated with some mild nausea but denies fever or vomiting. In addition, patient denies any urinary symptoms and states she has continued to have regular bowel movements as well as passing flatus. Related Data Home Medications Medication Instructions Recorded Confirmed duloxetine 30 mg capsule,delayed 30 mg PO DAILY 07/25/20 09/12/21 release melatonin 5 mg capsule 5 mg PO BEDTIME PRN 05/31/21 09/12/21 Previous Rx's Medication Instructions Recorded albuterol sulfate 90 mcg/actuation 2 puff inhalation Q4-6H PRN 08/05/20 aerosol inhaler (ProAir HFA) shortness of breath or wheezing #8.5 grams sennosides 8.6 mg-docusate sodium 2 tab PO BEDTIME #60 tabs 08/27/20 50 mg tablet (Senexon-S) wcvvfvlz-mux-tjefo acid 0.4 1 tab PO DAILY 60 days #60 tabs 10/04/20 mg-lycopene 300 mcg-lutein 250 mcg tablet (Centrum Silver) cholecalciferol (vitamin D3) 25 25 mcg PO DAILY #90 caps 02/19/21 mcg (1,000 unit) capsule omeprazole 40 mg capsule,delayed 40 mg PO BID #30 caps 08/27/21 release meclizine 25 mg tablet 25 mg PO TID PRN for dizziness #90 10/14/21 tabs hydrocortisone 2.5 % topical cream 1 appl CO BID PRN hemorrhoids #30 02/03/22 with perineal applicator grams lisinopril 5 mg tablet 5 mg PO DAILY 90 days #90 tabs 02/11/22 dicyclomine 10 mg capsule 10 mg PO QID #360 caps 02/18/22 ketorolac 10 mg tablet 10 mg PO Q6H PRN pain 5 days #20 05/22/22 tabs Allergies Allergy/AdvReac Type Severity Reaction Status Date / Time fenofibrate Allergy Intermediate throat Verified 05/22/22 13:54 swelling gabapentin Allergy Intermediate Dizziness Verified 05/22/22 13:54 potassium Allergy Intermediate per Verified 05/22/22 13:54 allergy testing simvastatin Allergy Intermediate throat Verified 05/22/22 13:54 swelling Penicillins Allergy Mild rash Verified 05/22/22 13:54 Review of Systems Review of Systems Pertinent positives and negatives as stated in HPI 10 point review of systems is otherwise negative. PMFSH Past Medical History Source: nursing notes reviewed Medical History Anxiety and depression Asthma COVID-19 virus infection Diverticulitis Fibromyalgia GERD (gastroesophageal reflux disease) Hematuria History of gastric ulcer History of renal calculi Hypercholesterolemia Juvenile myoclonic epilepsy Migraine Obesity (BMI 30-39.9) Post-COVID syndrome Renal calculi Skin infection Tibial neuropathy Upper back pain on left side White coat syndrome with hypertension Surgical History History of cholecystectomy History of extraction of renal calculus History of eye surgery History of total abdominal hysterectomy and bilateral salpingo-oophorectomy History of umbilical hernia repair Hx of colonoscopy Status post excision of lipoma Family History Family History Father CVD (cerebrovascular disease) Hypertension Stroke Family history of cancer Mother Cancer Cerebral aneurysm Family history of cancer Maternal Grandmother Throat cancer Maternal Aunt Stomach cancer Maternal Uncle Stomach cancer Social History Social History Housing: House Alcohol intake: current Alcohol intake frequency: does not drink Patient Tobacco Use Status: Never used Tobacco e-Cigarette/Vaping Use: Never Used Second Hand Smoke Exposure: No Advance Directives: No Advance Directives Information Provided: No service: No Current occupational status: unemployed Physical Exam ED Vital Signs: Vital Signs - 24 hr 05/22/22 14:28 05/22/22 15:55 Temperature 98 F 97.8 F Pulse Rate 88 78 Respiratory Rate 19 16 Blood Pressure 160/78 H 159/70 H Pulse Oximetry 98 99 Oxygen Delivery Method Room Air Room Air BMI result Body Mass Index 31.6 VITAL SIGNS: Reviewed. GENERAL: Well developed, well nourished, in no acute distress. HEAD: Normocephalic/atraumatic EYES: PERRLA, EOMI EARS: Ext canals without abnormality OROPHARYNX: no oral lesions noted, posterior pharynx clear LUNGS: Normal breath sounds. No adventitious sounds or accessory muscle use. SpO2<98> CARDIOVASCULAR: Regular rate and rhythm without noted murmurs ABDOMEN: Soft, tenderness without rebound at the left side of the abdomen, no hernias or masses appreciated, non-distended with bowel sounds. MUSCULOSKELETAL: No tenderness, deformities, or effusions noted on gross inspection. EXTREMITIES: No cyanosis, clubbing or edema. SKIN: Inspection of the skin reveals no rashes NEUROLOGIC: Alert and oriented x 4. Strength and sensation to light touch were grossly intact x 4. Course Course Course Narrative: 66-year-old female with history and clinical presentation suggestive of possible renal colic, UTI, diverticulitis but less likely felt to be SBO. Review of all investigations negative for acute findings. All results discussed with patient at bedside and it was suggested the patient may musculoskeletal pain or possible IBS related symptoms as she is currently undergoing evaluation by Gastroenterology and has had a barium imaging study which was negative for acute findings as well as a gastric emptying study, both in 2020,that were within normal limits. I discussed all findings and results with the patient at bedside. Patient will be discharged home with presumptive musculoskeletal pain possibly originating from her back and she was encouraged to continue without patient analgesics. MDM - Abdominal Pain Lab Data Result diagrams: 05/22/22 15:16 05/22/22 15:16 Labs: Lab Results 05/22/22 05/22/22 05/22/22 Range/Units 15:16 15:16 15:16 WBC 7.8 (4.8-10.8) X10*3/uL RBC 5.11 (4.20-5.50) X10*6/uL Hgb 14.3 (12.0-16.0) g/dl Hct 43.5 (37.0-47.0) % MCV 85.1 (80.0-98.0) fL MCH 28.0 (27.0-33.0) pg MCHC 32.9 (31.0-35.0) g/dl RDW 12.5 (11.0-16.0) % Plt Count 271 (160-400) X10*3/uL MPV 10.0 (9.4-12.3) fL Immature Gran % (Auto) 0.3 (0.0-0.4) % Neut % (Auto) 61.4 (45-73) % Lymph % (Auto) 29.6 (20-40) % Gibson % (Auto) 7.3 (2-11) % Eos % (Auto) 0.6 (0-4) % Baso % (Auto) 0.8 (0-2) % Lymph # (Auto) 2.3 (1.2-4.9) X10*3/uL Gibson # (Auto) 0.6 (0.1-1.2) X10*3/uL Eos # (Auto) 0.1 (0.0-0.4) X10*3/uL Baso # (Auto) 0.1 (0.0-0.2) X10*3/uL Abs Immat Gran (auto) 0.02 (0.00-0.03) X10*3/uL Absolute Neuts (auto) 4.8 (2.0-8.3) x10*3/uL Absolute Nucleated RBC 0.000 (0.0-0.012) X10*3/uL Nucleated RBC % (auto) 0.0 (0.0-0.2) /100WBC Sodium 145 (135-145) mmol/L Potassium 4.4 (3.3-5.1) mmol/L Chloride 106 (96-108) mmol/L Carbon Dioxide 28 (22-29) mmol/L Anion Gap 15 (12-20) BUN 13 (9-16) mg/dL Creatinine 0.83 (0.5-1.4) mg/dL Estim Creat Clear Calc 59.7 Estimated GFR > 60 Random Glucose 107 (60-115) mg/dL Calcium 9.3 (8.4-10.2) mg/dL Total Bilirubin 0.5 (0.0-1.0) mg/dL Direct Bilirubin < 0.2 (0.0-0.5) mg/dL AST 16 (5-31) U/L ALT 19 (0-31) U/L Alkaline Phosphatase 67 (39-117) U/L Total Protein 7.1 (6.5-8.0) g/dL Albumin 4.3 (3.5-5.0) g/dL Lipase 27 (8-78) U/L Urine Color Yellow Urine Appearance Clear Urine pH 7.0 (5.0-9.0) Ur Specific Monroe 1.010 (1.005-1.025) Urine Protein Negative (Neg-Trace) mg/dL Urine Glucose (UA) Negative (Negative) mg/dL Urine Ketones Negative (Negative) mg/dL Urine Blood Negative (Negative) Urine Nitrite Negative (Negative) Ur Leukocyte Esterase Negative (Negative) Discharge Plan Discharge Clinical Impression: Musculoskeletal pain Patient Disposition: Home, Self-Care Instructions: Musculoskeletal Pain (ED) Additional Instructions: 1. Tylenol 1000 mg, por v?a oral, cada 6 horas seg?n sea necesario para controlar el dolor. No exceda los 4000 mg dentro de las 24 horas. 2. Parche de lidoca?na, aplique en el ?chalino de m?xima sensibilidad sushil se indica en el empaque exterior. 3. Tambi?n puede usar elana almohadilla t?rmica seg?n sea necesario para un alivio adicional de los s?ntomas. 4. Susan un seguimiento con petty proveedor de atenci?n primaria para elana evaluaci?n adicional llamando a la oficina por la ma?miko para programar elana ebenezer. Regrese a la elia de emergencias si los s?ntomas empeoran. Prescriptions: New ketorolac 10 mg tablet 10 mg PO Q6H PRN (Reason: pain) 5 Days Qty: 20 0RF Rx Instructions: Patient received Toradol here in the emergency room No Action albuterol sulfate [ProAir HFA] 90 mcg/actuation HFA aerosol inhaler 2 puff inhalation Q4-6H PRN (Reason: shortness of breath or wheezing) Qty: 8.5 3RF sennosides-docusate sodium [Senexon-S] 8.6-50 mg tablet 2 tab PO BEDTIME Qty: 60 5RF meclizine 25 mg tablet 25 mg PO TID PRN (Reason: for dizziness) Qty: 90 1RF hydrocortisone 2.5 % cream with perineal applicator 1 appl CO BID PRN (Reason: hemorrhoids) Qty: 30 0RF lisinopril 5 mg tablet 5 mg PO DAILY 90 Days Qty: 90 2RF dicyclomine 10 mg capsule 10 mg PO QID Qty: 360 1RF duloxetine 30 mg capsule,delayed release(DR/EC) 30 mg PO DAILY Centrum Silver 0.4-300-250 mg-mcg-mcg tablet 1 tab PO DAILY 60 Days Qty: 60 0RF cholecalciferol (vitamin D3) 25 mcg (1,000 unit) capsule 25 mcg PO DAILY Qty: 90 3RF melatonin 5 mg capsule 5 mg PO BEDTIME PRN omeprazole 40 mg capsule,delayed release(DR/EC) 40 mg PO BID Qty: 30 6RF Referrals: Po,Mitesh Barton MD [Primary Care Provider] - Print Language: Venezuelan
[2022-05-22] MEDS: Ketorolac Tromethamine 30 MG/ML VIAL 15 MG IVPUSH (16:08)
[2022-05-22] MEDS: Acetaminophen 325 MG TABLET 975 MG PO (16:09)
== END 2022-05-22 17:12 | disposition home or self-care (01) ==
PROVIDERS: Emergency Provider Student in an Organized Health Care Education/Training Program; PCP Internal Medicine
DX: M79.10 Myalgia, unspecified site (principal); R10.9 Unspecified abdominal pain; I10 Essential (primary) hypertension; E78.00 Pure hypercholesterolemia, unspecified
CPT/HCPCS: 36415; 74176; 80048; 80076; 81003; 83690; 85025; 96372; 99284; J1885

== ENCOUNTER 2022-06-05 | Outpatient (REF) | payer MEDICARE, MEDICAID, SELFPAY | END 2022-06-05 00:01 | disposition home or self-care (01) | LOC: CF | PROVIDERS: Visit Provider Nurse Practitioner | DX: R10.9 Unspecified abdominal pain (principal); K57.92 Diverticulitis of intestine, part unspecified, without perforation or abscess without bleeding | CPT/HCPCS: 99212 ==

== ENCOUNTER 2022-06-05 10:45 | Outpatient (REF) | payer MEDICARE, MEDICAID, SELFPAY | END 2022-06-05 10:46 | disposition home or self-care (01) | LOC: HO.HAP 10:45 | PROVIDERS: Visit Provider Internal Medicine | DX: Z46.1 Encounter for fitting and adjustment of hearing aid (principal); H90.3 Sensorineural hearing loss, bilateral | CPT/HCPCS: 99212; V5275 ==

== ENCOUNTER 2022-07-02 08:10 | Outpatient (REF) | payer MEDICARE, MEDICAID, SELFPAY ==
[2022-07-02 09:52] LABS: Creatinine Urine 197.57 mg/dL; Protein/Creatinine Ratio, Ur 0.06 (<0.2); Total Protein Urine Random 12 mg/dL (<12)
[2022-07-02 09:55] LABS: Anion Gap 14 (12-20); Blood Urea Nitrogen 9 mg/dL (9-16); Calcium 9.3 mg/dL (8.4-10.2); Carbon Dioxide 30 mmol/L (22-29); Chloride 105 mmol/L (96-108); Estimated Glomerular Filt Rate > 60; Glucose Random 101 mg/dL (60-115); Potassium 4.7 mmol/L (3.3-5.1); Sodium 144 mmol/L (135-145)
== END 2022-07-02 08:11 | disposition home or self-care (01) ==
LOC: HO.LAB 08:10
PROVIDERS: Absent Provider Internal Medicine Hypertension Specialist; PCP Nurse Practitioner Family; Visit Provider Internal Medicine
DX: I10 Essential (primary) hypertension (principal)
CPT/HCPCS: 36415; 80048; 84156

== ENCOUNTER 2022-07-04 12:47 | Outpatient (REF) | payer MEDICARE, MEDICAID, SELFPAY ==
--- NOTE | 2022-07-04 13:36 | MHC.AU.HFU ---
Hearing Instrument Follow-Up- Binaural Date of Visit: 07/04/22 Right Ear: Stitcher Utility: Roselia Model: CROS XENIA-R Serial Number: [id number] Repair Warranty: 08/07/2024 Battery Size: Rechargeable Color: Expresso Shooter Helper: #2 CROS wire Type of Mold: XENIA High strength silicone with canal lock #[id number] warranty 09/17/2022 Type of Wax Guard: HearClear Dispensed By: [facility] Date of Fittin05/17/2021 Left Ear: Stitcher Utility: Roselia Model: Ismael 1600 XENIA-R Serial Number: [id number] Repair Warranty: 08/07/2024 Battery Size: Rechargeable Color: Expresso Shooter Helper: #2 50 gain Type of Mold: XENIA High strength silicone with canal lock #[id number] warranty 09/17/2022 Type of Wax Guard: HearClear Dispensed By: [facility] Date of Fittin05/17/2021 Follow-Up Summary: 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 She noticed an immediate improvement in comfort compared to her old acrylic ear molds. No occlusion or sound quality concerns noted. Reviewed cleaning the ear molds. Advised of warranty on ear molds and to call as soon as possible if any problems with fit or comfort arise. Gave Amalia her old acrylic ear molds to hold on to for back up. Recommendations:Hearing instrument maintenance in 6 months, or sooner if needed. Please contact our clinic with any questions or concerns. Patient will call if problems persist. Diagnosis Code(s): Primary Diagnosis: H90.3 Bilateral Sensorineural Hearing Loss, Secondary Diagnosis: H93.11 Tinnitus, Right Ear Signature: Provider: Gale Carrizales, [facility]
== END 2022-07-04 12:48 | disposition home or self-care (01) ==
LOC: HO.HAP 12:47
PROVIDERS: Visit Provider Nurse Practitioner Family
DX: Z46.1 Encounter for fitting and adjustment of hearing aid (principal); H90.3 Sensorineural hearing loss, bilateral
CPT/HCPCS: V5264

== ENCOUNTER 2022-07-09 08:00 | Outpatient (REF) | payer MEDICARE, MEDICAID, SELFPAY ==
--- NOTE | ~2022-07-09 | XR_ITS ---
EXAMINATION: XR SHOULDER, LEFT CLINICAL INFORMATION: Pain COMPARISON: None TECHNIQUE: AP external rotation, Grashey, scapular Y, and axillary views of the left shoulder. FINDINGS: The bones and soft tissues are normal. No fracture. Glenohumeral and acromioclavicular alignment is anatomic with normal joint space. No abnormal soft tissue calcifications. XR/XR shoulder LT min 2V IMPRESSION: Normal left shoulder.
--- NOTE | ~2022-07-09 | MM_ITS ---
EXAMINATION: BONE DENSITOMETRY CLINICAL INDICATION: Asymptomatic menopausal state. COMPARISON: Previous BD dated 03/13/2020 and baseline BD dated 09/12/2016. TECHNIQUE: Using a PeeplePass DXA System (software version: 13.1) manufactured by [employer], dual-energy x-ray absorptiometry was performed of the lumbar spine and left hip. The images are of good technical quality. Summary results are attached. FINDINGS: AP SPINE L1-L4: Current: BMD 0.906 g/cm2, Z-score -1.0, T-score -2.3, osteopenia, 14.7% decrease from previous, 11.0% decrease from baseline (<5% change is not significant). Prior: BMD 1.062 g/cm2. Baseline: BMD 1.018 g/cm2. LEFT FEMUR, NECK: Current: BMD 0.916 g/cm2, Z-score 0.4, T-score -0.9, normal. Prior: BMD 0.803 g/cm2. Baseline: BMD 0.871 g/cm2. LEFT FEMUR, TOTAL: Current: BMD 0.975 g/cm2, Z-score 0.8, T-score -0.3, normal, 5.5% increase from previous, 3.6% increase from baseline (<5% change is not significant). Prior: BMD 0.924 g/cm2. Baseline: BMD 0.941 g/cm2. IDENTIFIED RISK FACTORS: Early menopause, secondary osteoporosis, hysterectomy, bilateral oophorectomy. HISTORY OF FRACTURE: None listed. MEDICATIONS: Calcium supplements or multivitamin, vitamin D. MM/XR DEXA axial skeleton IMPRESSION: 1. DIAGNOSIS: Osteopenia based on the lowest T-score value of -2.3 in the lumbar spine applying World Health Organization criteria. 2. 10-YEAR FRACTURE RISK PREDICTION, FRAX: Major osteoporotic fracture (clinical spine, forearm, hip or shoulder) 4.3%. Hip fracture 0.3%. 3. Treatment Recommendations: NOF guidelines recommend consideration for treatment in postmenopausal women and men age 50 and older presenting with the following: -A hip or vertebral (clinical or morphometric) fracture. -T-score less than or equal to -2.5 at the femoral neck or spine after appropriate evaluation to exclude secondary causes. -Low bone mass at the hip or spine and a 10-year fracture probability by FRAX of greater than or equal to 3% for hip fracture or greater than or equal to 20% for major osteoporotic fracture based on the [place] adapted WHO algorithm. 4. Other Recommendations: All treatment decisions require clinical judgment and consideration of individual patient factors, including patient preferences, comorbidities, previous drug use, risk factors not captured in the FRAX model (e.g. frailty, falls, vitamin D deficiency, increased bone turnover, interval significant decline in bone density) and possible under or overestimation of fracture risk by FRAX. Additional medical evaluation for secondary cause of low bone mineral density may be appropriate. FUTURE SCAN RECOMMENDATION: People with diagnosed cases of osteoporosis or at high risk for fracture should have regular bone mineral density tests. For patients eligible for Medicare, routine testing is allowed once every 2 years. The testing frequency can be increased to one year for patients who have rapidly progressing disease, those who are receiving or discontinuing medical therapy to restore bone mass, or have additional risk factors.
--- NOTE | ~2022-07-09 | MM_ITS ---
EXAMINATION: MM SCREENING DIGITAL BREAST TOMOSYNTHESIS, BILATERAL CLINICAL INFORMATION: Screening. Asymptomatic. The lifetime risk of breast cancer based on the Tyrer-Cuzick Model is 3.3%. COMPARISON: Mammography: March 19, 2021 and studies dating back to February 04, 2016 TECHNIQUE: Digital breast tomosynthesis is performed in both the craniocaudal and mediolateral oblique views along with computer-aided detection (CAD). Synthesized 2D images are generated from the tomosynthesis. FINDINGS: There are scattered areas of fibroglandular density (ACR BI-RADS breast composition Category b). There are no significant masses, abnormal calcifications, or other abnormalities. MM/MM tomosynthesis screening BI IMPRESSION: No significant changes from prior exam. ASSESSMENT: BI-RADS 1: Negative RECOMMENDATION: Routine annual mammography screening. This patient's information was entered into a reminder system with a target due date for their next mammogram.
== END 2022-07-09 08:01 | disposition home or self-care (01) ==
LOC: HO.MAMMO 08:00
PROVIDERS: Absent Provider Internal Medicine; PCP Internal Medicine; Visit Provider Nurse Practitioner Family
DX: Z12.31 Encounter for screening mammogram for malignant neoplasm of breast (principal); Z13.820 Encounter for screening for osteoporosis; Z78.0 Asymptomatic menopausal state; M25.512 Pain in left shoulder
CPT/HCPCS: 73030; 77063; 77067; 77080

== ENCOUNTER → 2022-07-17 14:24 | Outpatient (BNVA) | payer MEDICARE, MEDICAID, SELFPAY | PROVIDERS: PCP Nurse Practitioner Family; Visit Provider Nurse Practitioner | DX: R10.9 Unspecified abdominal pain (principal); K21.9 Gastro-esophageal reflux disease without esophagitis; K59.01 Slow transit constipation | CPT/HCPCS: 99212 ==

== ENCOUNTER → 2022-09-18 13:03 | Outpatient (BNVA) | payer MEDICARE, MEDICAID, SELFPAY | PROVIDERS: PCP Nurse Practitioner Family; Visit Provider Orthopaedic Surgery | DX: M75.42 Impingement syndrome of left shoulder (principal) | CPT/HCPCS: 20610; 99202; J1100 ==

== ENCOUNTER 2022-11-04 12:33 | Emergency (ER) | payer MEDICARE, MEDICAID, SELFPAY ==
--- NOTE | 2022-11-04 13:02 | ED.ABDPAIN ---
HPI - Abdominal Pain General Chief Complaint: General Medical <Magali Everett CNP - Last Filed: 11/04/22 13:05> Stated Complaint: Abd pain sent by PCP <Magali Everett CNP - Last Filed: 11/04/22 13:05> Time Seen by Provider: 11/04/22 17:09 <Magali Everett CNP - Last Filed: 11/04/22 13:05> Source: patient, old records reviewed and medical officer psychiatry <DEB Blackman - Last Filed: 11/04/22 18:21> Mode of arrival: ambulatory <DEB Blackman - Last Filed: 11/04/22 18:21> Limitations: no limitations <DEB Blackman - Last Filed: 11/04/22 18:21> History of Present Illness HPI narrative: 67 yo female presents to the ER for evaluation of painful hemorrhoids that have been intermittently bleeding for the last 1 month. She has been following with GI and tried 2 prescription creams. She reports constipation and is afraid to eat due to rectal pain and constipation. She denies abdominal pain, nausea or vomiting. She had a bowel movement today that was hard and she has some bright red blood on the paper when she wiped. This scared her. She called her GI doctor and they cannot see her before Thursday so she came to the Er for further evaluation. <DEB Blackman - Last Filed: 11/04/22 18:21> MD elicited complaint: other (rectal pain) <DEB Blackman - Last Filed: 11/04/22 18:21> Pertinent past history: constipation <DEB Blackman - Last Filed: 11/04/22 18:21> Onset (ago): month(s) <DEB Blackman - Last Filed: 11/04/22 18:21> Pain Consistency: constant <DEB Blackman Last Filed: 11/04/22 18:21> Location: other (rectal) <DEB Blackman Last Filed: 11/04/22 18:21> Severity: severe <DEB Blackman - Last Filed: 11/04/22 18:21> Quality: sharp <DEB Blackman - Last Filed: 11/04/22 18:21> Radiation: none <DEB Blackman - Last Filed: 11/04/22 18:21> Migration to: no migration <DEB Blackman - Last Filed: 11/04/22 18:21> Exacerbating factors: bowel movement <DEB Blackman - Last Filed: 11/04/22 18:21> Relieving factors: nothing <DEB Blackman - Last Filed: 11/04/22 18:21> Context: history of similar episodes <DEB Blackman - Last Filed: 11/04/22 18:21> Associated symptoms: constipation <DEB Blackman Last Filed: 11/04/22 18:21> Related Data Home Medications: Home Medications Medication Instructions Recorded Confirmed duloxetine 30 mg capsule,delayed 30 mg PO DAILY 07/25/20 09/09/22 release melatonin 5 mg tablet 5 mg PO BEDTIME 07/17/22 09/09/22 Previous Rx's Medication Instructions Recorded ooofaxra-wes-dvvzz acid 0.4 1 tab PO DAILY 60 days #60 tabs 10/04/20 mg-lycopene 300 mcg-lutein 250 mcg tablet (Centrum Silver) cholecalciferol (vitamin D3) 25 25 mcg PO DAILY #90 caps 02/19/21 mcg (1,000 unit) capsule ketorolac 10 mg tablet 10 mg PO Q6H PRN pain 5 days #20 05/22/22 tabs omeprazole 40 mg capsule,delayed 40 mg PO BID #30 caps 06/05/22 release lisinopril 5 mg tablet 5 mg PO DAILY 90 days #90 tabs 06/30/22 meclizine 25 mg tablet 25 mg PO TID PRN for dizziness #90 06/30/22 tabs dicyclomine 20 mg tablet 20 mg PO TID 30 days #90 tabs 07/17/22 albuterol sulfate 90 mcg/actuation 2 puff inhalation Q4-6H PRN 09/09/22 aerosol inhaler (ProAir HFA) shortness of breath or wheezing #8.5 grams prednisone 20 mg tablet 40 mg PO DAILY 5 days #10 tabs 09/09/22 hydrocortisone 2.5 % topical cream 1 appl DE BID hemorrhoids #30 grams 10/29/22 with perineal applicator docusate sodium 100 mg capsule 100 mg PO BID #20 caps 11/04/22 (Colace) hydrocortisone 1 %-pramoxine 1 % 1 appl DE BID #10 grams 11/04/22 rectal foam (Proctofoam HC) lidocaine HCl 4 % (40 mg/mL) 1 appl mucous membrane Q6H PRN 11/04/22 mucosal solution pain #50 mL polyethylene glycol 3350 17 17 g PO DAILY #119 grams 11/04/22 gram/dose oral powder (Miralax) <Magali Everett CNP - Last Filed: 11/04/22 13:05> Allergies/Adverse Reactions: Allergies Allergy/AdvReac Type Severity Reaction Status Date / Time fenofibrate Allergy Intermediate throat Verified 11/04/22 13:06 swelling gabapentin Allergy Intermediate Dizziness Verified 11/04/22 13:06 potassium Allergy Intermediate per Verified 11/04/22 13:06 allergy testing simvastatin Allergy Intermediate throat Verified 11/04/22 13:06 swelling Penicillins Allergy Mild rash Verified 11/04/22 13:06 <Magali Everett CNP - Last Filed: 11/04/22 13:05> Review of Systems Review of Systems Yes all other systems are reviewed and are negative <DEB Blackman - Last Filed: 11/04/22 18:21> [facility] Past Medical History Medical History: Medical History Anxiety and depression Asthma COVID-19 virus infection COVID-19 virus infection Diverticulitis Fibromyalgia GERD (gastroesophageal reflux disease) Hematuria History of gastric ulcer History of renal calculi Hypercholesterolemia Juvenile myoclonic epilepsy Migraine Obesity (BMI 30-39.9) Post-COVID syndrome Renal calculi Skin infection Tibial neuropathy Upper back pain on left side White coat syndrome with hypertension <Magali Everett CNP - Last Filed: 11/04/22 13:05> Surgical History: Surgical History History of cholecystectomy History of extraction of renal calculus History of eye surgery History of total abdominal hysterectomy and bilateral salpingo-oophorectomy History of umbilical hernia repair Hx of colonoscopy Status post excision of lipoma <Magali Arguellese MAXI Everett - Last Filed: 11/04/22 13:05> Family History Family History: Family History Father CVD (cerebrovascular disease) Hypertension Stroke Family history of cancer Mother Cancer Cerebral aneurysm Family history of cancer Maternal Grandmother Throat cancer Maternal Aunt Stomach cancer Maternal Uncle Stomach cancer <Magali Marie MAXI Everett - Last Filed: 11/04/22 13:05> Social History Social History: Social History Housing: House Alcohol intake: current Alcohol intake frequency: does not drink Patient Tobacco Use Status: Never used Tobacco e-Cigarette/Vaping Use: Never Used Second Hand Smoke Exposure: No Advance Directives: No Advance Directives Information Provided: Yes service: No Current occupational status: unemployed Cognitive needs: No Hearing needs: Yes Vision needs: Yes <Magali Peytonrohit Everett CNP - Last Filed: 11/04/22 13:05> Physical Exam ED Vital Signs: Vital Signs - 24 hr 11/04/22 13:03 Temperature 97.7 F Pulse Rate 111 H Respiratory Rate 18 Blood Pressure 190/83 H Pulse Oximetry 98 Oxygen Delivery Method Room Air BMI result Body Mass Index 31.4 <Magali Peytonrohit Everett CNP - Last Filed: 11/04/22 13:05> Vital Signs - 24 hr 11/04/22 13:03 Temperature 97.7 F Pulse Rate 111 H Respiratory Rate 18 Blood Pressure 190/83 H Pulse Oximetry 98 Oxygen Delivery Method Room Air BMI result Body Mass Index 31.4 <DEB Blackman - Last Filed: 11/04/22 18:21> Appearance: Alert. Oriented X3. No acute distress. HEENT: normal external inspection CVS: Normal heart rate and rhythm. Pulses normal. Respiratory: No respiratory distress. Breath sounds normal. Abdomen: Soft and nontender. +BS x4 Rectal: external thrombosed hemorrhoids, small, minimally tender, not tense. small palpable internal hemorrhoids, tender, no bleeding. Skin: Skin warm and dry. Normal skin color. Normal skin turgor. No rashes. Extremities: No lower extremity edema. Neuro: Oriented X 3. Nonfocal <DEB Blackman - Last Filed: 11/04/22 18:21> Course Course Course Narrative: This is an RME: Additional HPI, ROS, PE not included below will be deferred to primary provider. Patient is a 67-year-old female with Hx of hemmorhoids, increased rectal pain, small amount of blood in stool worsening since yesterday. Advised by MICHELLE Gaxiola to come to ED, has appointment scheduled for Thursday but this has been ongoing x 1 month, and Pain is unbearable she reports. No relief with hydrocortisone rectal cream, Anucort rectal suppository, lidocaine topical ointment. Plan: labs, will require rectal examination, placed back in waiting room pending bed availability <Magali Everett CNP - Last Filed: 11/04/22 13:05> Reevaluation(s) Reevaluation #1: small thrombosed hemorrhoids on examination. no indication for incision at this time. needs bowel regimen and laxatives. will start proctofoam, topical lidocaine and have her follow up with GI. <DEB Blackman - Last Filed: 11/04/22 18:21> Medical Decision Making Differential Diagnosis Differential Diagnoses: The differential diagnosis associated with the presentation includes <DEB Blackman - Last Filed: 11/04/22 18:21> prolapsed internal hemorrhoids, external hemorrhoids, rectal mass, rectal bleeding <DEB Blackman - Last Filed: 11/04/22 18:21> Lab Data MDM Lab Attestation statement: I reviewed the patient's lab results. <DEB Blackman - Last Filed: 11/04/22 18:21> normal CBC, no anemia <DEB Blackman - Last Filed: 11/04/22 18:21> Result Diagrams: 11/04/22 13:45 11/04/22 13:45 <Magali Everett CNP - Last Filed: 11/04/22 13:05> Labs: Lab Results 11/04/22 11/04/22 Range/Units 13:45 13:45 WBC 7.1 (4.8-10.8) X10*3/uL RBC 5.14 (4.20-5.50) X10*6/uL Hgb 14.2 (12.0-16.0) g/dl Hct 43.6 (37.0-47.0) % MCV 84.8 (80.0-98.0) fL MCH 27.6 (27.0-33.0) pg MCHC 32.6 (31.0-35.0) g/dl RDW 12.7 (11.0-16.0) % Plt Count 279 (160-400) X10*3/uL MPV 10.0 (9.4-12.3) fL Immature Gran % (Auto) 0.1 (0.0-0.4) % Neut % (Auto) 68.2 (45-73) % Lymph % (Auto) 24.3 (20-40) % [place] % (Auto) 6.3 (2-11) % Eos % (Auto) 0.4 (0-4) % Baso % (Auto) 0.7 (0-2) % Lymph # (Auto) 1.7 (1.2-4.9) X10*3/uL [place] # (Auto) 0.5 (0.1-1.2) X10*3/uL Eos # (Auto) 0.0 (0.0-0.4) X10*3/uL Baso # (Auto) 0.1 (0.0-0.2) X10*3/uL Abs Immat Gran (auto) 0.01 (0.00-0.03) X10*3/uL Absolute Neuts (auto) 4.9 (2.0-8.3) x10*3/uL Absolute Nucleated RBC 0.000 (0.0-0.012) X10*3/uL Nucleated RBC % (auto) 0.0 (0.0-0.2) /100WBC Sodium 146 H (135-145) mmol/L Potassium 4.5 (3.3-5.1) mmol/L Chloride 107 (96-108) mmol/L Carbon Dioxide 28 (22-29) mmol/L Anion Gap 16 (12-20) BUN 11 (9-16) mg/dL Creatinine 0.79 (0.5-1.4) mg/dL Estim Creat Clear Calc 61.6 Estimated GFR > 60 Random Glucose 98 (60-115) mg/dL Calcium 9.5 (8.4-10.2) mg/dL <Magali Everett, [employer] - Last Filed: 11/04/22 13:05> Lab Results 11/04/22 11/04/22 Range/Units 13:45 13:45 WBC 7.1 (4.8-10.8) X10*3/uL RBC 5.14 (4.20-5.50) X10*6/uL Hgb 14.2 (12.0-16.0) g/dl Hct 43.6 (37.0-47.0) % MCV 84.8 (80.0-98.0) fL MCH 27.6 (27.0-33.0) pg MCHC 32.6 (31.0-35.0) g/dl RDW 12.7 (11.0-16.0) % Plt Count 279 (160-400) X10*3/uL MPV 10.0 (9.4-12.3) fL Immature Gran % (Auto) 0.1 (0.0-0.4) % Neut % (Auto) 68.2 (45-73) % Lymph % (Auto) 24.3 (20-40) % [place] % (Auto) 6.3 (2-11) % Eos % (Auto) 0.4 (0-4) % Baso % (Auto) 0.7 (0-2) % Lymph # (Auto) 1.7 (1.2-4.9) X10*3/uL [place] # (Auto) 0.5 (0.1-1.2) X10*3/uL Eos # (Auto) 0.0 (0.0-0.4) X10*3/uL Baso # (Auto) 0.1 (0.0-0.2) X10*3/uL Abs Immat Gran (auto) 0.01 (0.00-0.03) X10*3/uL Absolute Neuts (auto) 4.9 (2.0-8.3) x10*3/uL Absolute Nucleated RBC 0.000 (0.0-0.012) X10*3/uL Nucleated RBC % (auto) 0.0 (0.0-0.2) /100WBC Sodium 146 H (135-145) mmol/L Potassium 4.5 (3.3-5.1) mmol/L Chloride 107 (96-108) mmol/L Carbon Dioxide 28 (22-29) mmol/L Anion Gap 16 (12-20) BUN 11 (9-16) mg/dL Creatinine 0.79 (0.5-1.4) mg/dL Estim Creat Clear Calc 61.6 Estimated GFR > 60 Random Glucose 98 (60-115) mg/dL Calcium 9.5 (8.4-10.2) mg/dL <DEB Blackman - Last Filed: 11/04/22 18:21> External Record Review External record reviewed: Office record, Outpatient record and Prior outpatient labs <DEB Blackman - Last Filed: 11/04/22 18:21> Prescription Management I considered prescription management with: Pain Medication <DEB Blackman - Last Filed: 11/04/22 18:21> Chronic Conditions Patient?s care impacted by: Other <DEB Blackman - Last Filed: 11/04/22 18:21> Critical Care Time Critical Care Time Critical Care Time: No <DEB Blackman - Last Filed: 11/04/22 18:21> Discharge Plan Discharge Clinical Impression: Hemorrhoid <Magali Everett CNP - Last Filed: 11/04/22 13:05> Patient Disposition: Home, Self-Care <Magali Everett CNP - Last Filed: 11/04/22 13:05> Instructions: Hemorrhoids (ED) <Magali Everett CNP - Last Filed: 11/04/22 13:05> Additional Instructions: Use the prescribed medications as directed Increase your oral hydration and fiber intake - recommend over the counter Metamucil Continue warm sitz baths Follow up with your doctor on Thursday as scheduled If you develop new or worsening symptoms call 911 or come back to the ER for further evaluation. Use los medicamentos recetados seg?n las indicaciones Aumente petty hidrataci?n oral y petty consumo de fibra; recomiende sin receta Metamucil Contin?e con los ba?os de asiento tibios Seguimiento con petty m?dico el viernes seg?n lo programado Si desarrolla s?ntomas nuevos o que empeoran, llame al 911 o regrese a la elia de emergencias para elana evaluaci?n adicional. <Magali Everett CNP - Last Filed: 11/04/22 13:05> Prescriptions: New Proctofoam HC 1-1 % foam 1 appl DE BID Qty: 10 0RF docusate sodium [Colace] 100 mg capsule 100 mg PO BID Qty: 20 0RF polyethylene glycol 3350 [Miralax] 17 gram/dose powder 17 g PO DAILY Qty: 119 0RF lidocaine HCl 4 % (40 mg/mL) solution 1 appl mucous membrane Q6H PRN (Reason: pain) Qty: 50 0RF No Action lisinopril 5 mg tablet 5 mg PO DAILY 90 Days Qty: 90 2RF meclizine 25 mg tablet 25 mg PO TID PRN (Reason: for dizziness) Qty: 90 1RF hydrocortisone 2.5 % cream with perineal applicator 1 appl DE BID Qty: 30 6RF ketorolac 10 mg tablet 10 mg PO Q6H PRN (Reason: pain) 5 Days Qty: 20 0RF Rx Instructions: Patient received Toradol here in the emergency room duloxetine 30 mg capsule,delayed release(DR/EC) 30 mg PO DAILY Centrum Silver 0.4-300-250 mg-mcg-mcg tablet 1 tab PO DAILY 60 Days Qty: 60 0RF cholecalciferol (vitamin D3) 25 mcg (1,000 unit) capsule 25 mcg PO DAILY Qty: 90 3RF albuterol sulfate [ProAir HFA] 90 mcg/actuation HFA aerosol inhaler 2 puff inhalation Q4-6H PRN (Reason: shortness of breath or wheezing) Qty: 8.5 3RF prednisone 20 mg tablet 40 mg PO DAILY 5 Days Qty: 10 0RF omeprazole 40 mg capsule,delayed release(DR/EC) 40 mg PO BID Qty: 30 6RF melatonin 5 mg tablet 5 mg PO BEDTIME dicyclomine 20 mg tablet 20 mg PO TID 30 Days Qty: 90 6RF <Magali Everett CNP - Last Filed: 11/04/22 13:05> Referrals: [facility] [place] Gastroenterology Services [Provider Group] [facility] [place] General Surgeons [Provider Group] <Magali Everett CNP - Last Filed: 11/04/22 13:05> Print Language: Moroccan <Magali Everett CNP - Last Filed: 11/04/22 13:05>
[2022-11-04 13:03] VITALS: BP 190/83; PULSE 111; RESP 18; TEMP 36.5; O2SAT 98; BMI 31.4
[2022-11-04 13:49] LABS: MANUAL DIFF FLAG NO
[2022-11-04 13:50] LABS: Basophils Absolute Auto 0.1 X10*3/uL (0.0-0.2); Basophils Percent Auto 0.7 % (0-2); Eosinophils Percent Auto 0.4 % (0-4); Hematocrit 43.6 % (37.0-47.0); Hemoglobin 14.2 g/dl (12.0-16.0); Imm Gran Abs Auto 0.01 X10*3/uL (0.00-0.03); Imm Gran Pct Auto 0.1 % (0.0-0.4); Lymphocytes Absolute Auto 1.7 X10*3/uL (1.2-4.9); Lymphocytes Percent Auto 24.3 % (20-40); Mean Corpuscular HGB Conc 32.6 g/dl (31.0-35.0); Mean Corpuscular Hemoglobin 27.6 pg (27.0-33.0); Mean Corpuscular Volume 84.8 fL (80.0-98.0); Monocytes Absolute Auto 0.5 X10*3/uL (0.1-1.2); Monocytes Percent Auto 6.3 % (2-11); Neutrophils Absolute Auto 4.9 x10*3/uL (2.0-8.3); Neutrophils Percent Auto 68.2 % (45-73); Platelet Count 279 X10*3/uL (160-400); Red Blood Count 5.14 X10*6/uL (4.20-5.50); Red Cell Distribution Width 12.7 % (11.0-16.0); White Blood Count 7.1 X10*3/uL (4.8-10.8)
[2022-11-04 14:08] LABS: Anion Gap 16 (12-20); Blood Urea Nitrogen 11 mg/dL (9-16); Calcium 9.5 mg/dL (8.4-10.2); Carbon Dioxide 28 mmol/L (22-29); Chloride 107 mmol/L (96-108); Creatinine Clr Calc Pharmacy 61.6; Estimated Glomerular Filt Rate > 60; Glucose Random 98 mg/dL (60-115); Potassium 4.5 mmol/L (3.3-5.1); Sodium 146 mmol/L (135-145)
[2022-11-04 18:19] VITALS: BP 139/73; PULSE 73; RESP 18; TEMP 36.9; O2SAT 99
[2022-11-04] MEDS: Lidocaine 4 % Cream KIT 1 APPL TOPICAL (18:36)
== END 2022-11-04 18:44 | disposition home or self-care (01) ==
PROVIDERS: Nurse Practitioner Family; Emergency Provider Internal Medicine; PCP Nurse Practitioner Family
DX: K64.9 Unspecified hemorrhoids (principal); Z79.899 Other long term (current) drug therapy
CPT/HCPCS: 36415; 80048; 85025; 99282; 99283

== ENCOUNTER 2022-11-21 13:00 | Outpatient (REF) | payer MEDICARE, MEDICAID, SELFPAY ==
[2022-11-21 15:11] LABS: MANUAL DIFF FLAG NO
[2022-11-21 15:39] LABS: Basophils Absolute Auto 0.1 X10*3/uL (0.0-0.2); Basophils Percent Auto 0.9 % (0-2); Eosinophils Percent Auto 0.7 % (0-4); Hematocrit 42.8 % (37.0-47.0); Imm Gran Abs Auto 0.01 X10*3/uL (0.00-0.03); Imm Gran Pct Auto 0.2 % (0.0-0.4); Lymphocytes Percent Auto 33.9 % (20-40); Mean Corpuscular HGB Conc 32.7 g/dl (31.0-35.0); Mean Corpuscular Hemoglobin 27.7 pg (27.0-33.0); Mean Corpuscular Volume 84.6 fL (80.0-98.0); Mean Platelet Volume 10.4 fL (9.4-12.3); Monocytes Absolute Auto 0.4 X10*3/uL (0.1-1.2); Monocytes Percent Auto 6.2 % (2-11); Neutrophils Absolute Auto 3.4 x10*3/uL (2.0-8.3); Neutrophils Percent Auto 58.1 % (45-73); Platelet Count 311 X10*3/uL (160-400); Red Blood Count 5.06 X10*6/uL (4.20-5.50); Red Cell Distribution Width 12.6 % (11.0-16.0); White Blood Count 5.8 X10*3/uL (4.8-10.8)
[2022-11-21 16:20] LABS: Alanine Aminotransferase 31 U/L (0-31); Albumin Level 4.1 g/dL (3.5-5.0); Alkaline Phosphatase 60 U/L (39-117); Anion Gap 13 (12-20); Aspartate Amino Transferase 19 U/L (5-31); Bilirubin Total 0.7 mg/dL (0.0-1.0); Blood Urea Nitrogen 8 mg/dL (9-16); Calcium 9.1 mg/dL (8.4-10.2); Carbon Dioxide 26 mmol/L (22-29); Chloride 107 mmol/L (96-108); Cholesterol 238 mg/dL; Estimated Glomerular Filt Rate > 60; Glucose Fasting 91 mg/dL (60-99); HDL Cholesterol 34 mg/dL; LDL Cholesterol Calculated 150 mg/dl; Potassium 4.1 mmol/L (3.3-5.1); Sodium 142 mmol/L (135-145); Total Protein 6.4 g/dL (6.5-8.0); Triglycerides 273 mg/dL
[2022-11-21 16:21] LABS: Vitamin D 25-OH Total 23.6 ng/mL (>30)
[2022-11-21 16:37] LABS: Folate 15.3 ng/mL (> or = 4.0); TSH reflex Free T4 0.89 uIU/mL (0.32-4.0); Vitamin B12 388 pg/mL (200-900)
== END 2022-11-21 13:01 | disposition home or self-care (01) ==
LOC: HO.LAB 13:00
PROVIDERS: Internal Medicine; PCP Nurse Practitioner Family; Visit Provider Nurse Practitioner Family
DX: E55.9 Vitamin D deficiency, unspecified (principal); E78.5 Hyperlipidemia, unspecified; E53.8 Deficiency of other specified B group vitamins; E78.00 Pure hypercholesterolemia, unspecified; K64.9 Unspecified hemorrhoids; K59.01 Slow transit constipation
CPT/HCPCS: 36415; 80053; 80061; 82306; 82607; 82746; 84443; 85025; 99212

== ENCOUNTER 2022-11-24 09:45 | Outpatient (REF) | payer MEDICARE, MEDICAID, SELFPAY ==
[2022-11-30 22:18] LABS: Pancreatic Elastase-1 >500 mcg/g
== END 2022-11-24 09:46 | disposition home or self-care (01) ==
LOC: HO.LNP 09:45
PROVIDERS: Visit Provider Nurse Practitioner Family
DX: R10.9 Unspecified abdominal pain (principal)
CPT/HCPCS: 82656

== ENCOUNTER → 2022-12-11 13:06 | Outpatient (BNVA) | payer MEDICARE, MEDICAID, SELFPAY | PROVIDERS: PCP Nurse Practitioner Family; Visit Provider Nurse Practitioner Family | DX: K59.01 Slow transit constipation (principal); K64.9 Unspecified hemorrhoids; E55.9 Vitamin D deficiency, unspecified | CPT/HCPCS: 99212 ==

== ENCOUNTER → 2023-01-16 14:11 | Outpatient (BNVA) | payer MEDICARE, MEDICAID, SELFPAY | PROVIDERS: PCP Internal Medicine; Visit Provider Nurse Practitioner Family | DX: K59.01 Slow transit constipation (principal); K21.9 Gastro-esophageal reflux disease without esophagitis; K14.0 Glossitis | CPT/HCPCS: 99212 ==

== ENCOUNTER 2023-05-01 11:07 | Outpatient (AMB) | payer MEDICARE, MEDICAID, SELFPAY ==
[2023-05-01 11:22] VITALS: BP 155/67; PULSE 95; BMI 30.6
--- NOTE | 2023-05-01 11:22 | A.OFFVIS_ITS ---
Intake Vital Signs 05/01/23 11:22 Height 5 ft Weight 156 lb 8.451 oz BMI 30.6 BP 155/67 H Blood Pressure Location Lt brachial Position Sitting Pulse 95 Intake Visit Reasons: 3 month fu Intake Note: Amalia presents in office as a est.patient for a 3month f/u for Abdominal bloating. PT CC: pt reports having constipation/ Diarrhea pt denies any other GI Issues Television Reporter Required: Yes Television Reporter Language: Latvian Accompanied by: Self / Same As Patient Allergies fenofibrate Allergy (Intermediate, Verified 05/01/23 11:23) throat swelling gabapentin Allergy (Intermediate, Verified 05/01/23 11:23) Dizziness potassium Allergy (Intermediate, Verified 05/01/23 11:23) per allergy testing simvastatin Allergy (Intermediate, Verified 05/01/23 11:23) throat swelling Penicillins Allergy (Mild, Verified 05/01/23 11:23) rash HPI 3 month fu HPI Details LAST VISIT Constipation Continue taking Linzess and Colace as ordered. Patient was also encouraged to increase fluid intake and activity to promote better bowel motility. Overall patient is feeling better she can stay on this regimen for now. GERD (gastroesophageal reflux disease) Patient can continue current dose of omeprazole twice a day. Patient reports that her symptoms are completely suppressed. No longer has epigastric discomfort. Denies dyspepsia, dysphagia or odynophagia. Discussed with patient avoiding dietary triggers only time snacking. Staying upright for minimal 3 hours after meals discussed patient Abdominal bloating Patient reports no longer has abdominal bloating. Patient will continue with low FODMAP diet. Patient states that she is following recommendation based given to her last visit. I will see her in 3 months, sooner on as needed basis. Patient is agreeable to this plan and verbalizes understanding of instructions. She was given the opportunity to ask questions and all questions answered. ? Thank you for allowing me to participate in her care Plan Medications New lidocaine 5% 1 appl topical TID 1 ea 4RF hydrocortisone 2.5% (Proctosol HC) 1 appl CO BID-QID 30 grams 2RF hemorrhoids menthol-zinc oxide 0.44-20.6 % (Calmoseptine) 1 appl topical QID PRN 113 grams 0RF skin irritation TODAY'S VISIT Patient is here today for follow-up. Patient reports that since the last time I have seen her she has been doing well. However she noticed that sometimes when she eats food that is greasy or spicy she will have loose stools. Patient states that she is taking Linzess and feels like it is helping her. Patient will occasionally have diarrhea when taking Linzess, however feels like she empties her bowels better when taking it. Patient does not want to stop or change it as of right now. She does report that she has occasional rectal pain due to diarrhea. Patient is not eating much of fiber we can add fiber to her daily routine. Patient states that she used Proctosol and felt burning 1st time with she was using and then she stops. Occasional blood after bowel movement when wiping. No melena, no gross hematochezia, unintentional weight loss or ribbon like stools. Last colonoscopy in 2018 showed no polyps. Patient does use Sitz baths occasionally to help her with rectal discomfort. Patient takes omeprazole in the morning and occasionally in the evening before dinner. States that her symptoms of acid reflux are suppressed for the most part with omeprazole. Patient denies dyspepsia, dysphagia or odynophagia. [facility] Medical History Anxiety and depression Asthma Asthma exacerbation COVID-19 virus infection COVID-19 virus infection Diverticulitis Fibromyalgia GERD (gastroesophageal reflux disease) Hematuria History of gastric ulcer History of renal calculi Hypercholesterolemia Juvenile myoclonic epilepsy Left shoulder pain Migraine Obesity (BMI 30-39.9) Post-COVID syndrome Renal calculi Screening for breast cancer Screening for diabetes mellitus Skin infection Tibial neuropathy Upper back pain on left side White coat syndrome with hypertension Surgical History History of cholecystectomy History of extraction of renal calculus History of eye surgery History of total abdominal hysterectomy and bilateral salpingo-oophorectomy History of umbilical hernia repair Hx of colonoscopy Status post excision of lipoma Family History Father CVD (cerebrovascular disease) Hypertension Stroke Family history of cancer Mother Cancer Cerebral aneurysm Family history of cancer Maternal Grandmother Throat cancer Maternal Aunt Stomach cancer Maternal Uncle Stomach cancer Social History Housing: House Alcohol intake: current Alcohol intake frequency: does not drink Patient Tobacco Use Status: Never used Tobacco e-Cigarette/Vaping Use: Never Used Second Hand Smoke Exposure: No service: No Current occupational status: unemployed Cognitive needs: No Hearing needs: Yes Vision needs: Yes Review of Systems Const Denies weight gain and Denies weight loss ENT Reports no additional complaints, Denies dysphagia and Denies odynophagia Card Reports no additional complaints Resp Reports no additional complaints GI Denies abdominal pain, Denies belching, Denies melena, Denies bloating, Reports constipation, Denies dysphagia, Denies excessive flatus, Denies dyspepsia, Reports heartburn (Occasional), Denies diarrhea, Reports loose stools, Denies nausea, Denies odynophagia and Denies vomiting Reports no additional complaints Musc Reports no additional complaints Neuro Reports no additional complaints Psych Reports no additional complaints Endo Reports no additional complaints Physical Exam Vital Signs: Last Vital Signs Pulse 95 05/01/23 11:22 BP 155/67 H 05/01/23 11:22 BMI result Body Mass Index 30.6 Const General: healthy appearing, no acute distress and well developed Nutritional Appearance: obese Orientation/consciousness: patient oriented x3 HEENT Head: Yes normal to inspection, Yes normocephalic and Yes atraumatic Face and sinus: Yes normal facial exam Mouth: Normal oral and palatal mucosa present Throat: Yes posterior oropharynx normal, Yes tonsils normal and Yes uvula midline Eyes General: appearance normal, both eyes and all related structures Neck Neck: Yes normal visual inspection, Yes full ROM and Yes trachea midline Thyroid: Thyroid normal Resp Effort & Inspection: normal respiratory effort, able to speak in complete sentences, no tracheal deviation and symmetric chest movement Auscultation: clear to auscultation bilaterally Cardio Rate: regular rate Heart sounds: S1 normal heart sound present and S2 normal heart sound present GI Inspection: Yes normal to inspection, No distended and Yes obesity Palpation (GI): Soft to palpation, not firm, nontender and No hepatosplenomegaly present Auscultation: normal bowel sounds General: Yes no CVA tenderness Back/Spine/Pelvis Back: no CVA tenderness Skin General skin exam: elasticity normal, turgor normal and dry skin Neuro General: patient oriented x3 Psych Appearance: grossly normal Mental Status: mental status grossly normal Speech and movement: Normal speech and movement present Assessment & Plan Assessment & Plan (1) GERD (gastroesophageal reflux disease): Code(s): K21.9 - Gastro-esophageal reflux disease without esophagitis Qualifiers: Esophagitis presence: without esophagitis Qualified Code(s): K21.9 - Gastro-esophageal reflux disease without esophagitis Plan: Continue omeprazole. Patient is taking every morning and sometimes she will take it before dinner. Discussed with patient avoiding dietary triggers and late night snacking. Staying upright for minimum 3 hours after meals discussed with patient. (2) Constipation: Code(s): K59.00 - Constipation, unspecified Qualifiers: Constipation type: slow transit constipation Qualified Code(s): K59.01 - Slow transit constipation Plan: Patient reports that she will have occasional loose stools, however she feels like she wants to stay taking Linzess as it helps to move her bowels. (3) IBS (irritable bowel syndrome): Code(s): K58.9 - Irritable bowel syndrome without diarrhea Qualifiers: Irritable bowel syndrome type: with both diarrhea and constipation Qualified Code(s): K58.2 - Mixed irritable bowel syndrome Plan: Patient alternate between loose stools and constipation. States that Linzess is helping her. We will try to bulk her stools with Citrucel. Patient was encouraged to increase water intake. If patient will continue to have loose stools, occasional blood in the stool most likely from hemorrhoids, if she gloria nues we will send her for colonoscopy. Last colonoscopy in 2018 showed no polyps. I will see patient in 3 months, sooner on as needed basis. Patient is agreeable to this plan and verbalizes understanding of instructions. She was given the opportunity to ask questions and all questions answered. Thank you for allowing me to participate in her care Medications: New methylcellulose (laxative) (Citrucel) take it with full glass of water 500 mg PO DAILY 30 tabs 2RF K59.00 - Constipation, unspecified hydrocortisone 2.5% (Proctosol HC) 1 appl CO BID-QID PRN 30 grams 2RF hemorrhoids K64.9 - Unspecified hemorrhoids Refilled omeprazole 40 mg PO BID 60 caps 6RF K21.9 - Gastro-esophageal reflux disease without esophagitis, Z87.19 - Personal history of other diseases of the digestive system Discontinued polyethylene glycol 3350 (Miralax) Discontinued Reason: Patient Completed Course 17 grams PO DAILY 119 grams 0RF hydrocortisone 2.5% Discontinued Reason: Duplicate 1 appl CO BID 30 grams 6RF hemorrhoids hydrocortisone 2.5% (Proctosol HC) Discontinued Reason: Duplicate 1 appl CO BID-QID 30 grams 2RF hemorrhoids Coding Level of Care Code Est Pt Level 4 (14862) Diagnoses GERD (gastroesophageal reflux disease) K21.9 Esophagitis presence: without esophagitis Constipation K59.01 Constipation type: slow transit constipation IBS (irritable bowel syndrome) K58.2 Irritable bowel syndrome type: with both diarrhea and constipation Time Spent (min) 35 Comment 20 minutes spent with patient and additional 15 minutes spent reviewing her records
== END 2023-05-01 11:51 | disposition home or self-care (01) ==
PROVIDERS: PCP Internal Medicine; Visit Provider Nurse Practitioner Family
DX: K21.9 Gastro-esophageal reflux disease without esophagitis (principal); K59.01 Slow transit constipation; K58.2 Mixed irritable bowel syndrome
CPT/HCPCS: 99214

== ENCOUNTER → 2023-05-01 11:07 | Outpatient (BNVA) | payer MEDICARE, MEDICAID, SELFPAY | PROVIDERS: PCP Internal Medicine; Visit Provider Nurse Practitioner Family | DX: K21.9 Gastro-esophageal reflux disease without esophagitis (principal); K59.01 Slow transit constipation; K58.2 Mixed irritable bowel syndrome; Z90.49 Acquired absence of other specified parts of digestive tract | CPT/HCPCS: 99212 ==

== ENCOUNTER 2023-06-08 08:40 | Outpatient (REF) | payer MEDICARE, MEDICAID, SELFPAY ==
[2023-06-08 09:46] LABS: Alanine Aminotransferase 12 U/L (0-31); Albumin Level 4.2 g/dL (3.5-5.0); Alkaline Phosphatase 61 U/L (39-117); Anion Gap 10 (12-20); Aspartate Amino Transferase 15 U/L (5-31); Bilirubin Total 0.5 mg/dL (0.0-1.0); Blood Urea Nitrogen 7 mg/dL (9-16); Calcium 9.5 mg/dL (8.4-10.2); Carbon Dioxide 30 mmol/L (22-29); Chloride 107 mmol/L (96-108); Cholesterol 143 mg/dL (<200); Estimated Glomerular Filt Rate > 60; Glucose Random 98 mg/dL (60-115); HDL Cholesterol 38 mg/dL (>40); LDL Cholesterol Calculated 73 mg/dL (<100); Potassium 4.2 mmol/L (3.3-5.1); Sodium 143 mmol/L (135-145); Total Protein 6.8 g/dL (6.5-8.0); Triglycerides 163 mg/dL (<150)
== END 2023-06-08 08:41 | disposition home or self-care (01) ==
LOC: HO.LAB 08:40
PROVIDERS: Absent Provider Internal Medicine; PCP Internal Medicine; Visit Provider Nurse Practitioner Family
DX: E78.00 Pure hypercholesterolemia, unspecified (principal)
CPT/HCPCS: 36415; 80053; 80061

== ENCOUNTER 2023-06-12 10:42 | Outpatient (AMB) | payer MEDICARE, MEDICAID, SELFPAY ==
[2023-06-12 10:56] VITALS: BP 152/80; PULSE 81; O2SAT 98; BMI 30.3
--- NOTE | 2023-06-12 10:56 | A.OFFPC_ITS ---
Vital Signs 06/12/23 10:56 Height 5 ft Weight 155 lb BMI 30.3 BP 152/80 H Blood Pressure Location Lt brachial Position Sitting Pulse 81 Pulse Source Pulse Oximeter Pulse Oximetry (%) 98 Oxygen Delivery Method Room Air Intake Visit Reasons: Annual PE Allergies fenofibrate Allergy (Intermediate, Verified 06/12/23 10:57) throat swelling gabapentin Allergy (Intermediate, Verified 06/12/23 10:57) Dizziness potassium Allergy (Intermediate, Verified 06/12/23 10:57) per allergy testing simvastatin Allergy (Intermediate, Verified 06/12/23 10:57) throat swelling Penicillins Allergy (Mild, Verified 06/12/23 10:57) rash Medication List - Last Reconciled 06/12/23 by Mitesh Geller, cholecalciferol (vitamin D3) 50 mcg PO DAILY docusate sodium (Colace) 200 mg (2 x 100 mg) PO BEDTIME duloxetine 30 mg PO DAILY hydrocortisone 2.5% (Proctosol HC) 1 appl MO BID-QID PRN lidocaine 5% 1 appl topical TID lidocaine HCl 1 appl mucous membrane Q6H PRN linaclotide (Linzess) 145 mcg PO DAILY lisinopril 10 mg PO DAILY 90 days meclizine 25 mg PO TID PRN melatonin 5 mg PO BEDTIME methylcellulose (laxative) (Citrucel) 500 mg PO DAILY neppmcmg-gmf-DP-lycopen-lutein 0.4 mg-300 mcg- 250 mcg (Centrum Silver) 1 tab PO DAILY 60 days omeprazole 40 mg PO BID rosuvastatin 5 mg PO DAILY Tobacco use date assessed: 12/18/22 Fall risk assessment: No Falls in past year Last assessed Fall Risk: 06/12/23 Dental Screening Dental Screen Date: 06/12/23 Did you have a dental visit in the last 12 months?: Yes Did you have a dental problem in the last 6 months where you did not have access to dental care?: No Was dental information given to patient?: Patient has dentist HPI Annual PE HPI Details 67-year-old obese female with hypertensi on hypercholesterolemia generalized anxiety disorder GERD coming in for physical exam. Last seen in November 2022. Patient's colonoscopy is up-to-date mammogram due bone density up-to-date. Patient follows up with Gastroenterology for the GERD on omeprazole constipation irritable bowel syndrome patient placed on Citrucel. got the flu shot 2 weeks ago - had fevers and nausea. Taryn [address] interpret [facility] Medical History Anxiety and depression Asthma Asthma exacerbation COVID-19 virus infection COVID-19 virus infection Diverticulitis Fibromyalgia GERD (gastroesophageal reflux disease) Hematuria History of gastric ulcer History of renal calculi Hypercholesterolemia Juvenile myoclonic epilepsy Left shoulder pain Migraine Obesity (BMI 30-39.9) Post-COVID syndrome Renal calculi Screening for breast cancer Screening for diabetes mellitus Skin infection Tibial neuropathy Upper back pain on left side White coat syndrome with hypertension Surgical History History of cholecystectomy History of extraction of renal calculus History of eye surgery History of total abdominal hysterectomy and bilateral salpingo-oophorectomy History of umbilical hernia repair Hx of colonoscopy Status post excision of lipoma Family History Father CVD (cerebrovascular disease) Hypertension Stroke Family history of cancer Mother Cancer Cerebral aneurysm Family history of cancer Maternal Grandmother Throat cancer Maternal Aunt Stomach cancer Maternal Uncle Stomach cancer Social History Housing: House Alcohol intake: current Alcohol intake frequency: does not drink Patient Tobacco Use Status: Never used Tobacco e-Cigarette/Vaping Use: Never Used Second Hand Smoke Exposure: No service: No Current occupational status: unemployed Cognitive needs: No Hearing needs: Yes Vision needs: Yes Questionnaire PHQ-9 Over the last 2 weeks, how often have you been bothered by any of the following problems? 1. Little interest or pleasure in doing things: not at all 2. Feeling down, depressed, or hopeless: not at all 3. Trouble falling or staying asleep, or sleeping too much: not at all 4. Feeling tired or having little energy: not at all 5. Poor appetite or overeating: not at all 6. Feeling bad about yourself - or that you are a failure or have let yourself or your family down: not at all 7. Trouble concentrating on things, such as reading the newspaper or watching television: not at all 8. Moving or speaking so slowly that other people could have noticed. Or the opposite - being so fidgety or restless that you have been moving around a lot more than usual: not at all 9. Thoughts that you would be better off or of hurting yourself in some way: not at all Total score: 0 Depression Screening Interpretation: Negative 24332 - PHQ-9 Billing: Yes Source: Developed by Drs. Vern Anderson, Lala Lopez, Samson Moulton and colleagues, with an educational jj from [employer]. Thrive Questionnaire Date Thrive assessed: 12/18/22 AUDIT C Alcohol Use Questionnaire (AUDIT-C) 1. How often do you have a drink containing alcohol?: Never Total Score: 0 ANABEL-7 AMB Questionnaire ANABEL-7 Date ANABEL - 7 assessed: 12/18/22 Source: Developed by Drs. Vern Anderson, Lala Lopez, Samson Moulton and colleagues, with an educational jj from [employer]. Review of Systems Const Denies poor appetite and Denies weakness Eyes Denies no additional complaints ENT Reports Normal hearing present, Denies dizziness, Denies nasal congestion, Denies tinnitus and Denies sore throat Card Denies chest pain, Denies syncope, Denies rapid heart rate and Denies dyspnea Resp Denies cough and Denies dyspnea GI Denies change in stool character, Reports constipation, Denies diarrhea, Denies nausea and Denies vomiting Denies urinary frequency, Denies difficulty voiding and Denies dysuria Neuro Reports Normal hearing present, Denies confusion, Denies dizziness, Denies syncope and Denies weakness Psych Denies confusion Physical exam (Primary Care) Vital Signs: Last Vital Signs Pulse 81 06/12/23 10:56 BP 152/80 H 06/12/23 10:56 Pulse Ox 98 06/12/23 10:56 Oxygen Delivery Method Room Air 06/12/23 10:56 Care Plan Goal for BP management: guaiac negativem hemorrhoids BMI result Body Mass Index 30.3 Tobacco/Smoking Status: Tobacco use Status Tobacco use date assessed 12/18/22 06/12/23 10:58 Patient Tobacco Use Status Never used Tobacco 06/12/23 10:58 e-Cigarette/Vaping Use Never Used 06/12/23 10:58 PHQ-9: PHQ-9 Score PHQ-9: Total score 0 06/12/23 11:15 Depression Screening Interpretation: Negative Thrive Assessment: Date of Thrive Assessment Date Thrive assessed 12/18/22 06/12/23 10:58 Const General: alert and awake; No confusion Orientation/consciousness: No confusion HENMT Head: Yes normocephalic Ears: external ears normal and TM's normal bilaterally Face and sinus: Yes normal facial exam Mouth: moist mucous membranes Throat: Yes tonsils normal Eyes Conjunctivae: conjunctivae normal Pupils: Equal, round and reactive pupils present and Pupil accommodation reflex normal Direct Ophthalmoscopy: normal light reflex Neck Neck: No lymphadenopathy Thyroid: Thyroid normal Chest Chest palpation & inspection: normal inspection of the chest Resp Effort & Inspection: normal respiratory effort and no audible wheezes Auscultation: clear to auscultation bilaterally, no crackles, no wheezes and lung sounds not diminished Cardio Rate: regular rate Rhythm: regular rhythm Peripheral pulses: radial pulses present and dorsalis pedis present GI Palpation (GI): no masses Auscultation: normal bowel sounds and normoactive bowel sounds Rectal Exam - Female: deferred Skin General skin exam: no rashes or lesions noted Rashes: no rashes Neuro General: deep tendon reflexes 2+ bilaterally and No confusion Cranial nerves: Yes Equal, round and reactive pupils present, Yes Midline tongue present, Yes Normal hearing present and Yes Ability to bilaterally elevate shoulders present Cognition (Neuro): normal cognition Gait exam (Neuro): Normal gait present Motor exam (neuro): 5/5 motor strength present throughout Deep tendon reflexes (DTR's): Right brachioradialis reflex intensity grade: 2+, Left brachioradialis reflex intensity grade: 2+, Right patellar reflex intensity grade: 2+ and Left patellar reflex intensity grade: 2+ Extrem General: No edema Assessment and Plan Assessment & Plan (1) Annual physical exam: Code(s): Z00.00 - Encounter for general adult medical examination without abnormal findings (2) Obesity (BMI 30-39.9): Code(s): E66.9 - Obesity, unspecified Plan: Diet and exercise (3) Hypertension: Code(s): I10 - Essential (primary) hypertension Qualifiers: Hypertension type: essential hypertension Qualified Code(s): I10 - Essential (primary) hypertension Plan: Continue with blood pressure medication. Decrease salt intake and exercise patient is on lisinopril 10 mg once a day (4) Hypercholesterolemia: Code(s): E78.00 - Pure hypercholesterolemia, unspecified Plan: Avoid fried foods, chicken skin, eggs, butter margarine, pastries and meat. Be it pork or beef they have a lot of cholesterol LDL goal of less than 130 and triglyceride of less than 150. Patient last blood work was done in December 08 patient is on rosuvastatin 5 mg once a (5) GERD (gastroesophageal reflux disease): Code(s): K21.9 - Gastro-esophageal reflux disease without esophagitis Qualifiers: Esophagitis presence: without esophagitis Qualified Code(s): K21.9 - Gastro-esophageal reflux disease without esophagitis Plan: Avoid the foods that causes that usually spicy foods, tomato products, juices, coffee, soda and foods that your sensitive to. After eating do not lie down, allow 3-4 hours before in lie down. And keep the head of bed above 30 degrees to avoid the acid from going up. (6) Generalized anxiety disorder: Code(s): F41.1 - Generalized anxiety disorder (7) Hemorrhoid: Code(s): K64.9 - Unspecified hemorrhoids Qualifiers: Hemorrhoid type: unspecified Qualified Code(s): K64.9 - Unspecified hemorrhoids Medications: Refilled cholecalciferol (vitamin D3) 50 mcg PO DAILY 90 caps 3RF R79.89 - Other specified abnormal findings of blood chemistry hydrocortisone 2.5% (Proctosol HC) 1 appl MO BID-QID PRN 30 grams 2RF hemorrhoids K64.9 - Unspecified hemorrhoids Coding Level of Care Code Est Pt Prev Care >65y(68130) Diagnoses Annual physical exam Z00.00 Obesity (BMI 30-39.9) E66.9 Essential hypertension I10 Hypertension type: essential hypertension Hypercholesterolemia E78.00 Gastroesophageal reflux disease without esophagitis K21.9 Esophagitis presence: without esophagitis Generalized anxiety disorder F41.1 Hemorrhoids, unspecified hemorrhoid type K64.9 Hemorrhoid type: unspecified
== END 2023-06-12 12:04 | disposition home or self-care (01) ==
PROVIDERS: Visit Provider Internal Medicine
DX: Z00.00 Encounter for general adult medical examination without abnormal findings (principal); I10 Essential (primary) hypertension; K21.9 Gastro-esophageal reflux disease without esophagitis; Z68.30 Body mass index [BMI] 30.0-30.9, adult; E66.9 Obesity, unspecified; E78.00 Pure hypercholesterolemia, unspecified; F41.1 Generalized anxiety disorder; K64.9 Unspecified hemorrhoids
CPT/HCPCS: 99397

== ENCOUNTER 2023-07-14 08:42 | Outpatient (REF) | payer MEDICARE, MEDICAID, SELFPAY | END 2023-07-14 08:43 | disposition home or self-care (01) | LOC: HO.MAMMO 08:42 | PROVIDERS: PCP Internal Medicine; Visit Provider Internal Medicine | DX: Z12.31 Encounter for screening mammogram for malignant neoplasm of breast (principal) | CPT/HCPCS: 77063; 77067 ==

== ENCOUNTER → 2023-07-14 09:00 | Outpatient (BNV) | payer MEDICARE, MEDICAID, SELFPAY | PROVIDERS: PCP Internal Medicine; Visit Provider Radiology Diagnostic Radiology | DX: Z12.31 Encounter for screening mammogram for malignant neoplasm of breast (principal) | CPT/HCPCS: 77063; 77067 ==

== ENCOUNTER 2023-08-10 09:27 | Outpatient (AMB) | payer MEDICARE, MEDICAID, SELFPAY ==
[2023-08-10 09:31] VITALS: BMI 30.3
--- NOTE | 2023-08-10 09:31 | A.OFFVIS_ITS ---
Intake Vital Signs 08/10/23 09:31 Height 5 ft Weight 155 lb BMI 30.3 Intake Visit Reasons: ov- left shoulder pain Intake Note: Amalia is a 66 year old right hand dominant female who presents today for a follow up of her left shoulder pain, Last Injection done 09/08/22. States injection was helpful and she would like to repeat today Allergies fenofibrate Allergy (Intermediate, Verified 08/20/23 13:15) throat swelling gabapentin Allergy (Intermediate, Verified 08/20/23 13:15) Dizziness potassium Allergy (Intermediate, Verified 08/20/23 13:15) per allergy testing simvastatin Allergy (Intermediate, Verified 08/20/23 13:15) throat swelling Penicillins Allergy (Mild, Verified 08/20/23 13:15) rash HPI ov- left shoulder pain HPI Details Amalia is a 67 year old woman who returns to discuss her left shoulder impingement. She complains of returning pain with daily activity. She was last seen, and injected, on 09/18/22, and sent for PT. She says the injection was helpful and she would like to repeat this today. [facility]LY [facility] Medical History Asthma exacerbation Left shoulder pain Screening for breast cancer Screening for diabetes mellitus COVID-19 virus infection Hematuria Renal calculi Upper back pain on left side COVID-19 virus infection Post-COVID syndrome Diverticulitis White coat syndrome with hypertension Migraine History of renal calculi Fibromyalgia Tibial neuropathy GERD (gastroesophageal reflux disease) Asthma Juvenile myoclonic epilepsy Obesity (BMI 30-39.9) Anxiety and depression Hypercholesterolemia History of gastric ulcer Skin infection Surgical History Hx of colonoscopy History of extraction of renal calculus Status post excision of lipoma History of eye surgery History of total abdominal hysterectomy and bilateral salpingo-oophorectomy History of umbilical hernia repair History of cholecystectomy Family History Father CVD (cerebrovascular disease) Hypertension Stroke Family history of cancer Mother Cancer Cerebral aneurysm Family history of cancer Maternal Grandmother Throat cancer Maternal Aunt Stomach cancer Maternal Uncle Stomach cancer Social History Housing: House Alcohol intake: current Alcohol intake frequency: does not drink Patient Tobacco Use Status: Never used Tobacco e-Cigarette/Vaping Use: Never Used Second Hand Smoke Exposure: No service: No Current occupational status: unemployed Cognitive needs: No Hearing needs: Yes Vision needs: Yes Review of Systems Const All systems reviewed & are unremarkable except as noted in HPI and below Physical Exam Vital Signs: BMI result Body Mass Index 30.3 Const General: no acute distress, alert and awake Orientation/consciousness: patient oriented x3 HEENT Head: Yes normocephalic and Yes atraumatic Eyes EOM: EOMs intact bilaterally Resp Effort & Inspection: normal respiratory effort and able to speak in complete sentences Cardio Jugular venous distension: no JVD Skin General skin exam: turgor normal Rashes: no rashes Neuro General: patient oriented x3 Extrem Other: Left Shoulder: Full ROM +Manzano/Neer Neg EC Psych Appearance: grossly normal Affect: normal affect Attitude: cooperative Office Procedures Joint Injection/Drain Joint Injection/Drain Details: Injected 1 mL of Decadron and 3 mL 1% lidocaine and 3 mL of 0.25% Marcaine. Site was prepped using aseptic technique. Patient tolerated the procedure well. Primary Site: left shoulder Approach Used: posterolateral Coding - Large joint Procedure code (CPT) selection complete Assessment & Plan Assessment & Plan (1) Impingement syndrome, shoulder, left: Code(s): M75.42 - Impingement syndrome of left shoulder Plan: This is a 66-year-old woman with fibromyalgia and left shoulder impingement. She has pain with daily activity, and a hx of relief from steroid injections. I injected her left shoulder today, which she tolerated well, and recommend she remain active as tolerated. She can follow up prn. Coding Level of Care Code Est Pt Level 3 (10407) Diagnoses Impingement syndrome, shoulder, left M75.42 CPT Codes Coding - Large joint: 99255 - Large joint ([id number])
== END 2023-08-10 10:11 | disposition home or self-care (01) ==
PROVIDERS: PCP Internal Medicine; Visit Provider Orthopaedic Surgery
DX: M75.42 Impingement syndrome of left shoulder (principal)
CPT/HCPCS: 20610; 99213

== ENCOUNTER → 2023-08-10 09:27 | Outpatient (BNVA) | payer MEDICARE, MEDICAID, SELFPAY | PROVIDERS: PCP Internal Medicine; Visit Provider Orthopaedic Surgery | DX: M75.42 Impingement syndrome of left shoulder (principal) | CPT/HCPCS: 20610; 99212; J0665; J1100 ==

== ENCOUNTER 2023-08-12 15:26 | Outpatient (AMB) | payer MEDICARE, MEDICAID, SELFPAY ==
[2023-08-12 15:28] VITALS: BP 145/65; PULSE 74; BMI 30.3
--- NOTE | 2023-08-12 15:28 | MHC.OFFVIS ---
Intake Vital Signs 08/12/23 15:28 Height 5 ft Weight 155 lb BMI 30.3 BP 145/65 H Blood Pressure Location Lt brachial Position Sitting Pulse 74 Intake Visit Reasons: 3 month fu Intake Note: Amalia presents in the office as a 3 month follow up. CC: She states that she has been feeling okay. She states that she is out of the hemorrhoid medication. 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 Patient is taking every morning and sometimes she will take it before dinner. Discussed with patient avoiding dietary triggers and late night snacking. Staying upright for minimum 3 hours after meals discussed with patient. Constipation Patient reports that she will have occasional loose stools, however she feels like she wants to stay taking Linzess as it helps to move her bowels. IBS (irritable bowel syndrome) Patient alternate between loose stools and constipation. States that Linzess is helping her. We will try to bulk her stools with Citrucel. Patient was encouraged to increase water intake. If patient will continue to have loose stools, occasional blood in the stool most likely from hemorrhoids, if she continues we will send her for colonoscopy. Last colonoscopy in 2018 showed no polyps. I will see patient in 3 months, sooner on as needed basis. Patient is agreeable to this plan and verbalizes understanding of instructions. She was given the opportunity to ask questions and all questions answered. ? Thank you for allowing me to participate in her care Plan Medications New methylcellulose (laxative) (Citrucel) take it with full glass of water 500 mg PO DAILY 30 tabs 2RF K59.00 - Constipation, unspecified hydrocortisone 2.5% (Proctosol HC) 1 appl RI BID-QID PRN 30 grams 2RF hemorrhoids K64.9 - Unspecified hemorrhoids Refilled omeprazole 40 mg PO BID 60 caps 6RF K21.9 - Gastro-esophageal reflux disease without esophagitis, Z87.19 - Personal history of other diseases of the digestive system Discontinued polyethylene glycol 3350 (Miralax) Discontinued Reason: Patient Completed Course 17 grams PO DAILY 119 grams 0RF hydrocortisone 2.5% Discontinued Reason: Duplicate 1 appl RI BID 30 grams 6RF hemorrhoids hydrocortisone 2.5% (Proctosol HC) Discontinued Reason: Duplicate 1 appl RI BID-QID 30 grams 2RF hemorrhoids TODAY'S VISIT Patient is here today for follow-up. Patient reports that she has been doing well taking omeprazole twice a day. Patient states that she is taking Linzess and it feels helpful. Patient would like to get refills. States that Proctosol helps her with her hemorrhoids. Patient denies melena, hematochezia, unintentional weight loss or ribbon like stools. Patient denies any dyspepsia, dysphagia or odynophagia. [facility] Medical History Asthma exacerbation Left shoulder pain Screening for breast cancer Screening for diabetes mellitus COVID-19 virus infection Hematuria Renal calculi Upper back pain on left side COVID-19 virus infection Post-COVID syndrome Diverticulitis White coat syndrome with hypertension Migraine History of renal calculi Fibromyalgia Tibial neuropathy GERD (gastroesophageal reflux disease) Asthma Juvenile myoclonic epilepsy Obesity (BMI 30-39.9) Anxiety and depression Hypercholesterolemia History of gastric ulcer Skin infection Surgical History Hx of colonoscopy History of extraction of renal calculus Status post excision of lipoma History of eye surgery History of total abdominal hysterectomy and bilateral salpingo-oophorectomy History of umbilical hernia repair History of cholecystectomy Family History Father CVD (cerebrovascular disease) Hypertension Stroke Family history of cancer Mother Cancer Cerebral aneurysm Family history of cancer Maternal Grandmother Throat cancer Maternal Aunt Stomach cancer Maternal Uncle Stomach cancer Social History Housing: House Alcohol intake: current Alcohol intake frequency: does not drink Patient Tobacco Use Status: Never used Tobacco e-Cigarette/Vaping Use: Never Used Second Hand Smoke Exposure: No service: No Current occupational status: unemployed Cognitive needs: No Hearing needs: Yes Vision needs: Yes Review of Systems Const Denies weight gain and Denies weight loss ENT Reports no additional complaints, Denies dysphagia and Denies odynophagia Card Reports no additional complaints Resp Reports no additional complaints GI Denies abdominal pain, Denies belching, Denies melena, Denies bloating, Denies change in bowel habits, Denies dysphagia, Denies excessive flatus, Denies dyspepsia, Denies heartburn, Denies diarrhea, Denies loose stools, Denies nausea, Denies odynophagia and Denies vomiting Reports no additional complaints Musc Reports no additional complaints Neuro Reports no additional complaints Psych Reports no additional complaints Endo Reports no additional complaints Physical Exam Vital Signs: Last Vital Signs Pulse 74 08/12/23 15:28 BP 145/65 H 08/12/23 15:28 BMI result Body Mass Index 30.3 Const General: healthy appearing, no acute distress and well developed Nutritional Appearance: obese Orientation/consciousness: patient oriented x3 HEENT Head: Yes normal to inspection, Yes normocephalic and Yes atraumatic Face and sinus: Yes normal facial exam Mouth: Normal oral and palatal mucosa present Throat: Yes posterior oropharynx normal, Yes tonsils normal and Yes uvula midline Eyes General: appearance normal, both eyes and all related structures Neck Neck: Yes normal visual inspection, Yes full ROM and Yes trachea midline Thyroid: Thyroid normal Resp Effort & Inspection: normal respiratory effort, able to speak in complete sentences, no tracheal deviation and symmetric chest movement Auscultation: clear to auscultation bilaterally Cardio Rate: regular rate GI Inspection: Yes normal to inspection and No distended Palpation (GI): Soft to palpation, not firm, nontender and No hepatosplenomegaly present Auscultation: normal bowel sounds General: Yes no CVA tenderness Back/Spine/Pelvis Back: no CVA tenderness Skin General skin exam: elasticity normal, turgor normal and dry skin Neuro General: patient oriented x3 Psych Appearance: grossly normal Mental Status: mental status grossly normal Assessment & Plan Assessment & Plan (1) GERD (gastroesophageal reflux disease): Code(s): K21.9 - Gastro-esophageal reflux disease without esophagitis Qualifiers: Esophagitis presence: without esophagitis Qualified Code(s): K21.9 - Gastro-esophageal reflux disease without esophagitis (2) Constipation: Code(s): K59.00 - Constipation, unspecified Qualifiers: Constipation type: slow transit constipation Qualified Code(s): K59.01 - Slow transit constipation (3) IBS (irritable bowel syndrome): Code(s): K58.9 - Irritable bowel syndrome without diarrhea Qualifiers: Irritable bowel syndrome type: without diarrhea Qualified Code(s): K58.9 - Irritable bowel syndrome without diarrhea Plan Patient will continue omeprazole in the morning and she may take a 2nd dose in the afternoon before dinner. Patient was encouraged however to avoid dietary triggers and late night snacking. Staying upright for minimum 3 hours after meals discussed with patient. Patient can take Linzess. She may take Colace in the evening. Script for Proctosol sent. Patient was encouraged to do Epsom salts Sitz baths. I will see patient in 4 months, sooner on as needed basis. Patient is agreeable to this plan and verbalizes understanding of instructions. She was given the opportunity to ask questions and all questions answered. Thank you for allowing me to participate in her care Medications: Refilled docusate sodium (Colace) 200 mg (2 x 100 mg) PO BEDTIME 180 caps 2RF E78.00 - Pure hypercholesterolemia, unspecified linaclotide (Linzess) 145 mcg PO DAILY 90 caps 3RF K59.04 - Chronic idiopathic constipation omeprazole 40 mg PO BID 180 caps 6RF K21.9 - Gastro-esophageal reflux disease without esophagitis, Z87.19 - Personal history of other diseases of the digestive system hydrocortisone 2.5% (Proctosol HC) 1 appl RI BID-QID PRN 30 grams 4RF hemorrhoids K64.9 - Unspecified hemorrhoids Coding Level of Care Code Est Pt Level 3 (35797) Diagnoses Gastroesophageal reflux disease without esophagitis K21.9 Esophagitis presence: without esophagitis Slow transit constipation K59.01 Constipation type: slow transit constipation Irritable bowel syndrome without diarrhea K58.9 Irritable bowel syndrome type: without diarrhea Time Spent (min) 25 Comment 15 minutes spent with patient and additional 10 minutes spent reviewing her records
== END 2023-08-12 16:02 | disposition home or self-care (01) ==
PROVIDERS: PCP Internal Medicine; Visit Provider Nurse Practitioner Family
DX: K21.9 Gastro-esophageal reflux disease without esophagitis (principal); K59.01 Slow transit constipation; K58.9 Irritable bowel syndrome, unspecified
CPT/HCPCS: 99213

== ENCOUNTER → 2023-08-12 15:26 | Outpatient (BNVA) | payer MEDICARE, MEDICAID, SELFPAY | PROVIDERS: PCP Internal Medicine; Visit Provider Nurse Practitioner Family | DX: K21.9 Gastro-esophageal reflux disease without esophagitis (principal); K59.01 Slow transit constipation; K58.9 Irritable bowel syndrome, unspecified | CPT/HCPCS: 99212 ==

== ENCOUNTER 2023-08-20 10:43 | Outpatient (AMB) | payer MEDICARE, MEDICAID, SELFPAY ==
--- NOTE | 2023-08-20 13:13 | AM.OFFWIN_ITS ---
Intake Vital Signs 08/20/23 13:14 Height 5 ft Weight 155 lb BMI 30.3 BP 130/82 Blood Pressure Location Rt brachial Position Sitting Pulse 87 Pulse Source Pulse Oximeter Temp 98.3 F Temp Source Temporal Artery Scan Pulse Oximetry (%) 97 Intake Visit Reasons: EST/sore throat/fever(lobby masked) Intake Note: pt is here for c/o sore throat, fever Patient Tobacco Use Status: Never used Tobacco Allergies fenofibrate Allergy (Intermediate, Verified 08/20/23 13:15) throat swelling gabapentin Allergy (Intermediate, Verified 08/20/23 13:15) Dizziness potassium Allergy (Intermediate, Verified 08/20/23 13:15) per allergy testing simvastatin Allergy (Intermediate, Verified 08/20/23 13:15) throat swelling Penicillins Allergy (Mild, Verified 08/20/23 13:15) rash Do you need a note to return to daycare/school/sports/work: Yes HPI HPI Comments History of Present Illness Details The patient presents to urgent care for evaluation of flu-like symptoms. She is questioning whether she has COVID because somebody who was at her house for [employer] recently came back positive for COVID. Patient r eports fever chills temperature as high as 103 degrees F at home. Sore throat. Mild cough PFSH Medical History Asthma exacerbation Left shoulder pain Screening for breast cancer Screening for diabetes mellitus COVID-19 virus infection Hematuria Renal calculi Upper back pain on left side COVID-19 virus infection Post-COVID syndrome Diverticulitis White coat syndrome with hypertension Migraine History of renal calculi Fibromyalgia Tibial neuropathy GERD (gastroesophageal reflux disease) Asthma Juvenile myoclonic epilepsy Obesity (BMI 30-39.9) Anxiety and depression Hypercholesterolemia History of gastric ulcer Skin infection Surgical History Hx of colonoscopy History of extraction of renal calculus Status post excision of lipoma History of eye surgery History of total abdominal hysterectomy and bilateral salpingo-oophorectomy History of umbilical hernia repair History of cholecystectomy Family History Father CVD (cerebrovascular disease) Hypertension Stroke Family history of cancer Mother Cancer Cerebral aneurysm Family history of cancer Maternal Grandmother Throat cancer Maternal Aunt Stomach cancer Maternal Uncle Stomach cancer Social History Housing: House Alcohol intake: current Alcohol intake frequency: does not drink Patient Tobacco Use Status: Never used Tobacco e-Cigarette/Vaping Use: Never Used Second Hand Smoke Exposure: No service: No Current occupational status: unemployed Cognitive needs: No Hearing needs: Yes Vision needs: Yes Review of Systems Const Reports body aches, Reports chills, Reports fatigue, Reports fever(s), Reports headache(s) and Reports malaise ENT Denies dizziness, Reports headache(s), Reports nasal congestion and Reports sore throat Card Denies rapid heart rate, Denies dyspnea and Denies dyspnea on exertion Resp Denies dyspnea and Denies dyspnea on exertion GI Denies dyspepsia and Denies heartburn Musc Denies arthralgias and Denies muscle cramps Neuro Denies dizziness, Reports headache(s), Denies focal weakness and Denies Other visual disturbances Endo Reports fatigue Physical Exam Vital Signs: Last Vital Signs Temp 98.3 F 08/20/23 13:14 Pulse 87 08/20/23 13:14 BP 130/82 08/20/23 13:14 Pulse Ox 97 08/20/23 13:14 BMI result Body Mass Index 30.3 Const General: healthy appearing and no acute distress HEENT Mouth: Normal oral and palatal mucosa present Resp Effort & Inspection: normal respiratory effort and able to speak in complete sentences Auscultation: clear to auscultation bilaterally Cardio Rate: regular rate Rhythm: regular rhythm Results AMB Rapid Strep AMB Rapid Strep Negative Last Edit by Amos Sabillon CMA on 08/20/23 13 :39 Results Reviewed Results Reviewed: Laboratory Last Values Strep Scn [facility] Negative 08/20/23 13:39 Assessment & Plan Assessment & Plan (1) Flu-like symptoms: Code(s): R68.89 - Other general symptoms and signs Plan Patient's symptoms are consistent with acute viral syndrome. Etiology unclear at this time. COVID test was done. Patient is well appearing stable for outpatient management no need for antibiotics at this time. Patient was counseled on this. Recommended supportive care and OTC medications. Work note given. Orders: Orders [facility] Covid-19 Ag Today J06.9 - Acute upper respiratory infection, unspecified AMB Rapid Strep Screen Today Z13.9 - Encounter for screening, unspecified Coding Level of Care Code Est Pt Level 3 (70795) Diagnoses Flu-like symptoms R68.89
[2023-08-20 13:14] VITALS: BP 130/82; PULSE 87; TEMP 36.8; O2SAT 97; BMI 30.3
== END 2023-08-20 14:42 | disposition home or self-care (01) ==
PROVIDERS: PCP Internal Medicine; Visit Provider Emergency Medicine
DX: R68.89 Other general symptoms and signs (principal); Z13.9 Encounter for screening, unspecified
CPT/HCPCS: 87880; 99213

== ENCOUNTER 2023-08-20 13:39 | Outpatient (REF) | payer MEDICARE, MEDICAID, SELFPAY ==
[2023-08-20 14:05] LABS: Binax Internal Control QC Valid; Binax Now Covid-19 Ag Negative (Negative); Binax Performed by: PAULP
== END 2023-08-20 13:40 | disposition home or self-care (01) ==
LOC: HO.HMGCLDS 13:39
PROVIDERS: PCP Internal Medicine; Visit Provider Emergency Medicine
DX: Z11.52 Encounter for screening for COVID-19 (principal); J06.9 Acute upper respiratory infection, unspecified
CPT/HCPCS: 87811; C9803

== ENCOUNTER 2023-12-02 15:06 | Outpatient (AMB) | payer MEDICARE, MEDICAID, SELFPAY ==
--- NOTE | 2023-12-02 15:09 | MHC.OFFVIS ---
Intake Vital Signs 12/02/23 15:10 Height 5 ft Weight 153 lb 7.068 oz BMI 30.0 BP 132/60 Blood Pressure Location Lt brachial Position Sitting Pulse 87 Pulse Source Pulse Oximeter Intake Visit Reasons: 4 month follow up Intake Note: Pt presents to the office today for a 4 month follow up for constipation. She states food like bread and rice will constipate her but she states the medication is definitely helping her. She states she has a bowel movement everyday. Pt denies any other GI concerns at this time. Allergies fenofibrate Allergy (Intermediate, Verified 12/02/23 15:12) throat swelling gabapentin Allergy (Intermediate, Verified 12/02/23 15:12) Dizziness potassium Allergy (Intermediate, Verified 12/02/23 15:12) per allergy testing simvastatin Allergy (Intermediate, Verified 12/02/23 15:12) throat swelling Penicillins Allergy (Mild, Verified 12/02/23 15:12) rash HPI 4 month follow up HPI Details LAST VISIT GERD (gastroesophageal reflux disease) Constipation IBS (irritable bowel syndrome) Plan Patient will continue omeprazole in the morning and she may take a 2nd dose in the afternoon before dinner. Patient was encouraged however to avoid dietary triggers and late night snacking. Staying upright for minimum 3 hours after meals discussed with patient. Patient can take Linzess. She may take Colace in the evening. Script for Proctosol sent. Patient was encouraged to do Epsom salts Sitz baths. I will see patient in 4 months, sooner on as needed basis. Patient is agreeable to this plan and verbalizes understanding of instructions. She was given the opportunity to ask questions and all questions answered. ? Thank you for allowing me to participate in her care Medications Refilled docusate sodium (Colace) 200 mg (2 x 100 mg) PO BEDTIME 180 caps 2RF E78.00 linaclotide (Linzess) 145 mcg PO DAILY 90 caps 3RF K59.04 omeprazole 40 mg PO BID 180 caps 6RF K21.9, Z87.19 hydrocortisone 2.5% (Proctosol HC) 1 appl WI BID-QID PRN 30 grams 4RF hemorrhoids K64.9 TODAY'S VISIT Patient is here today for follow-up. Patient reports that she has been doing much better now that she changed her diet. Patient states that she staying away from rice and bread. Takes Linzess in the morning and stool softeners in the evening and reports that she has been moving her bowels better. Patient denies melena, hematochezia, unintentional weight loss or ribbon like stools. Patient denies dyspepsia, dysphagia or odynophagia. Patient states that she only takes omeprazole in the morning. After patient changed her diet some of her symptoms are gone. However patient does admit that it is hard for her to stay away from bread and rice. Patient denies any other GI concerning symptoms. Patient reports that she might be moving to [place]. Currently is trying to sell her house here in [place]. Some stress and sadness reported by patient as she has been living here in the same house for 20 years [facility] Medical History Asthma exacerbation Left shoulder pain Screening for breast cancer Screening for diabetes mellitus COVID-19 virus infection Hematuria Renal calculi Upper back pain on left side COVID-19 virus infection Post-COVID syndrome Diverticulitis White coat syndrome with hypertension Migraine History of renal calculi Fibromyalgia Tibial neuropathy GERD (gastroesophageal reflux disease) Asthma Juvenile myoclonic epilepsy Obesity (BMI 30-39.9) Anxiety and depression Hypercholesterolemia History of gastric ulcer Skin infection Surgical History Hx of colonoscopy History of extraction of renal calculus Status post excision of lipoma History of eye surgery History of total abdominal hysterectomy and bilateral salpingo-oophorectomy History of umbilical hernia repair History of cholecystectomy Family History Father CVD (cerebrovascular disease) Hypertension Stroke Family history of cancer Mother Cancer Cerebral aneurysm Family history of cancer Maternal Grandmother Throat cancer Maternal Aunt Stomach cancer Maternal Uncle Stomach cancer Social History Housing: House Alcohol intake: current Alcohol intake frequency: does not drink Patient Tobacco Use Status: Never used Tobacco e-Cigarette/Vaping Use: Never Used Second Hand Smoke Exposure: No service: No Current occupational status: unemployed Cognitive needs: No Hearing needs: Yes Vision needs: Yes Review of Systems Const Denies weight gain and Denies weight loss ENT Reports no additional complaints, Denies dysphagia and Denies odynophagia Card Reports no additional complaints Resp Reports no additional complaints GI Denies abdominal pain, Denies belching, Denies melena, Denies bloating, Denies change in bowel habits, Reports constipation, Denies dysphagia, Denies excessive flatus, Denies dyspepsia, Denies heartburn, Denies diarrhea, Denies loose stools, Denies nausea, Denies odynophagia and Denies vomiting Reports no additional complaints Musc Reports no additional complaints Neuro Reports no additional complaints Psych Reports no additional complaints Endo Reports no additional complaints Physical Exam Vital Signs: Last Vital Signs Pulse 87 12/02/23 15:10 BP 132/60 12/02/23 15:10 BMI result Body Mass Index 30.0 Const General: healthy appearing, no acute distress and well developed Nutritional Appearance: obese Orientation/consciousness: patient oriented x3 Resp Effort & Inspection: normal respiratory effort, able to speak in complete sentences, no tracheal deviation and symmetric chest movement Auscultation: clear to auscultation bilaterally Cardio Rate: regular rate GI Inspection: Yes normal to inspection, No distended and Yes obesity Palpation (GI): Soft to palpation, not firm, nontender and No hepatosplenomegaly present Auscultation: normal bowel sounds General: Yes no CVA tenderness Back/Spine/Pelvis Back: no CVA tenderness Skin General skin exam: elasticity normal, turgor normal and dry skin Neuro General: patient oriented x3 Psych Appearance: grossly normal Mental Status: mental status grossly normal Assessment & Plan Assessment & Plan (1) GERD (gastroesophageal reflux disease): Code(s): K21.9 - Gastro-esophageal reflux disease without esophagitis Qualifiers: Esophagitis presence: without esophagitis Qualified Code(s): K21.9 - Gastro-esophageal reflux disease without esophagitis (2) Constipation: Code(s): K59.00 - Constipation, unspecified Qualifiers: Constipation type: slow transit constipation Qualified Code(s): K59.01 - Slow transit constipation (3) IBS (irritable bowel syndrome): Code(s): K58.9 - Irritable bowel syndrome without diarrhea Qualifiers: Irritable bowel syndrome type: with constipation Qualified Code(s): K58.1 - Irritable bowel syndrome with constipation Plan Continue current management with Linzess and Colace. Patient was encouraged to increase fluid intake and activity to promote better bowel motility. Avoid bread and rice. Eat more vegetables. Bake meat instead of frying. Omeprazole daily. Avoid dietary triggers and late night snacking. Staying upright for minimal 3 hours after meals discussed with patient. Patient will return to the office in 6 months, sooner on as needed basis. Patient is agreeable to this plan and verbalizes understanding of instructions. She was given the opportunity to ask questions and all questions answered. Thank you for allowing me to participate in her care Medications: Changed From omeprazole 40 mg PO BID 180 caps 6RF K21.9 - Gastro-esophageal reflux disease without esophagitis, Z87.19 - Personal history of other diseases of the digestive system To omeprazole 40 mg PO DAILY 90 caps 6RF K21.9 - Gastro-esophageal reflux disease without esophagitis, Z87.19 - Personal history of other diseases of the digestive system Refilled docusate sodium (Colace) 200 mg (2 x 100 mg) PO BEDTIME 180 caps 2RF E78.00 - Pure hypercholesterolemia, unspecified linaclotide (Linzess) 145 mcg PO DAILY 90 caps 3RF K59.04 - Chronic idiopathic constipation Coding Level of Care Code Est Pt Level 3 (42436) Diagnoses Gastroesophageal reflux disease without esophagitis K21.9 Esophagitis presence: without esophagitis Slow transit constipation K59.01 Constipation type: slow transit constipation Irritable bowel syndrome with constipation K58.1 Irritable bowel syndrome type: with constipation Time Spent (min) 25 Comment 15 minutes spent with patient and additional 10 minutes spent reviewing her records
[2023-12-02 15:10] VITALS: BP 132/60; PULSE 87
== END 2023-12-02 15:33 | disposition home or self-care (01) ==
PROVIDERS: PCP Internal Medicine; Visit Provider Nurse Practitioner Family
DX: K21.9 Gastro-esophageal reflux disease without esophagitis (principal); K59.01 Slow transit constipation; K58.1 Irritable bowel syndrome with constipation
CPT/HCPCS: 99213

== ENCOUNTER → 2023-12-02 15:06 | Outpatient (BNVA) | payer MEDICARE, MEDICAID, SELFPAY | PROVIDERS: PCP Internal Medicine; Visit Provider Nurse Practitioner Family | DX: K21.9 Gastro-esophageal reflux disease without esophagitis (principal); K58.1 Irritable bowel syndrome with constipation; K59.01 Slow transit constipation; Z79.899 Other long term (current) drug therapy | CPT/HCPCS: 99212 ==